=== PATIENT | female | born 1990 ===

== ENCOUNTER 2016-10-09 21:18 | Emergency (ER) | payer OTHER ==
[2016-10-09 21:19] VITALS: BMI 53.2
[2016-10-09 21:46] VITALS: BP 158/94; RESP 16; TEMP 99.1
[2016-10-09 22:06] VITALS: PULSE 104; O2SAT 98
[2016-10-09] MEDS ORDERED: Sodium Chloride 0.9% 1,000 ML IV STA (22:07)
--- NOTE | 2016-10-09 22:07 | ED PDOC ---
Arrival/HPI - General Chief Complaint: Abdominal Pain Time Seen by Provider: 10/09/16 21:51 Historian: Patient - History of Present Illness Narrative History of Present Illness (Text): 10/09/16 22:06 Shruthi De Souza is a 26 year old female, with no significant past medical history , who presents to the ED complaining of upper abdominal cramping since this morning. Patient reports associated nausea, dry-heaving, non-bloody diarrhea, and headache. Patient denies any recent sick exposure, fever, chills, chest pain, shortness of breath, cough, sore throat, urinary symptoms, or back pain. Patient states she is on Depovera and her last menstrual period was late July 2016. Patient also notes she has aleft lower tooth abscess for which she took Amoxicillin and scheduled to see her dentist on 10/14/2016. Time/Duration: Other (morning) Symptom Onset: Gradual Symptom Course: Unchanged Activities at Onset: Rest, Light Context: Home Past Medical History - Provider Review Nursing Documentation Reviewed: Yes - Infectious Disease Hx of Infectious Diseases: None - Tetanus Immunization Tetanus Immunization: Unknown - Past Medical History Past Medical History: No Previous - Cardiac Hx Cardiac Disorders: Yes Hx Hypertension: Yes - Pulmonary Hx Respiratory Disorders: No - Neurological Hx Neurological Disorder: No - HEENT Hx HEENT Disorder: No - Renal Hx Renal Disorder: No - Endocrine/Metabolic Hx Endocrine Disorders: No - Hematological/Oncological Hx Blood Disorders: No - Integumentary Hx Dermatological Disorder: No - Musculoskeletal/Rheumatological Hx Musculoskeletal Disorders: No - Gastrointestinal Hx Gastrointestinal Disorders: No - Genitourinary/Gynecological Hx Genitourinary Disorders: No - Psychiatric Hx Psychophysiologic Disorder: No Hx Substance Use: No - Past Surgical History Past Surgical History: No Previous - Surgical History Hx Section: Yes - Anesthesia Hx Anesthesia: Yes Hx Anesthesia Reactions: No Hx Malignant Hyperthermia: No - Suicidal Assessment Feels Threatened In Home Enviroment: No Family/Social History - Physician Review Nursing Documentation Reviewed: Yes Family/Social History: No Known Family HX Smoking Status: Never Smoked Hx Alcohol Use: No Hx Substance Use: No Hx Substance Use Treatment: No Allergies/Home Meds Allergies/Adverse Reactions: Allergies No Known Allergies Allergy (Verified 10/09/16 21:43) Home Medications: Home Meds Medication Instructions Recorded Confirmed Depo Shot 07/10/16 Review of Systems - Physician Review All systems were reviewed & negative as marked: Yes - Review of Systems Constitutional: Normal. absent: Fevers Eyes: Normal ENT: Normal. absent: Sore Throat Respiratory: Normal. absent: SOB, Cough Cardiovascular: Normal. absent: Chest Pain Gastrointestinal: Abdominal Pain, Diarrhea, Nausea Genitourinary Female: Normal. absent: Dysuria, Frequency, Hematuria, Urine Output Changes Musculoskeletal: Normal. absent: Back Pain, Neck Pain Skin: Normal. absent: Rash Neurological: Headache. absent: Dizziness Endocrine: Normal Hemo/Lymphatic: Normal Psychiatric: Normal Physical Exam Vital Signs Reviewed: Yes Vital Signs Temp Pulse Resp BP Pulse Ox 10/09/16 22:06 99.1 F 104 H 16 98 10/09/16 21:44 99.1 F 105 H 16 158/94 H 99 Temperature: Afebrile Blood Pressure: Hypertensive Pulse: Regular Respiratory Rate: Normal Appearance: Positive for: Well-Appearing, Non-Toxic, Comfortable, Other (Obese) Pain Distress: None Mental Status: Positive for: Alert and Oriented X 3 - Systems Exam Head: Present: Atraumatic, Normocephalic Pupils: Present: PERRL Extroacular Muscles: Present: EOMI Conjunctiva: Present: Normal Mouth: Present: Moist Mucous Membranes. No: Normal Teeth (left lower 1st molar dental lev) Neck: Present: Normal Range of Motion Respiratory/Chest: Present: Clear to Auscultation, Good Air Exchange. No: Respiratory Distress, Accessory Muscle Use Cardiovascular: Present: Regular Rate and Rhythm, Normal S1, S2. No: Murmurs Abdomen: Present: Normal Bowel Sounds. No: Tenderness, Distention, Peritoneal Signs Neurological: Present: GCS=15, CN II-XII Intact, Speech Normal Skin: Present: Warm, Dry, Normal Color. No: Rashes Psychiatric: Present: Alert, Oriented x 3, Normal Insight, Normal Concentration Medical Decision Making ED Course and Treatment: 10/09/16 22:06 Impression: 26 y/o female c/o upper abdominal cramping, nausea, and diarrhea since this morning. Also with ongoing dental infection. Differential Diagnosis included but are not limited to: gastroenteritis vs. vs. reaction to Amoxicillin vs. pancreatitis Plan: -- Labs, lipase -- UA -- IV fluids -- Pepcid -- Reglan -- Toradol -- Reassess and disposition Progress Notes: 10/09/16 23:46 On re-evaluation, patient states she feels significantly better. 10/10/16 00:34 HCG is negative. Exam is unremarkable. Labs unremarkable and feeling much better as noted. Will d/c. - Lab Interpretations Lab Results: 10/09/16 22:40 10/09/16 23:10 Lab Results 10/09/16 23:10: Sodium 139, Potassium 3.7, Chloride 104, Carbon Dioxide 24, Anion Gap 15, BUN 9, Creatinine 0.6, Est GFR ( Amer) > 60, Est GFR (Non- Af Amer) > 60, Random Glucose 114 H, Calcium 8.8, Total Bilirubin 0.6, AST 19, ALT 31, Alkaline Phosphatase 86, Total Protein 7.8, Albumin 3.8, Globulin 4.0, Albumin/Globulin Ratio 1.0 L, Lipase 45 10/09/16 22:40: WBC 6.7 D, RBC 5.14, Hgb 12.4, Hct 38.0, MCV 73.9 L, MCH 24.1 L , MCHC 32.6, RDW 14.9 H, Plt Count 227, Gran % 78.9 H, Lymph % (Auto) 14.8 L, [place] % (Auto) 6.1 H, Eos % (Auto) 0.1 L, Baso % (Auto) 0.1, Gran # 5.28, Lymph # 1.0 L, [place] # 0.4, Eos # 0.0, Baso # 0.01, PT 10.7, INR 0.99, APTT 27.2, Urine Color Yellow, Urine Appearance Clear, Urine pH 6.0, Ur Specific [place] > = 1.030, Urine Protein Negative, Urine Glucose (UA) Negative, Urine Ketones Trace H, Urine Blood Negative, Urine Nitrate Negative, Urine Bilirubin Negative , Urine Urobilinogen 0.2, Ur Leukocyte Esterase Negative I have reviewed the lab results: Yes - Medication Orders Current Medication Orders: Discontinued Medications Famotidine (Pepcid) 20 mg IVP STAT STA Stop: 10/09/16 22:08 Last Admin: 10/09/16 22:46 Dose: 20 MG IVP Administration Document 10/09/16 22:46 [email or web address] (Rec: 10/09/16 22:46 [facility] [id number]) Charges for Administration # of IVP Administrations 1 Sodium Chloride (Sodium Chloride 0.9%) 1,000 mls @ 1,000 mls/hr IV .Q1H STA Stop: 10/09/16 23:06 Last Admin: 10/09/16 22:46 Dose: 1,000 MLS/HR eMAR Start Stop Document 10/09/16 22:46 [email or web address] (Rec: 10/09/16 22:46 [email or web address] [id number]) Intravenous Solution Start Date 10/09/16 Start Time 22:46 End Date 10/09/16 Ketorolac Tromethamine (Toradol) 30 mg IVP STAT STA Stop: 10/09/16 22:08 Last Admin: 10/09/16 22:46 Dose: 30 MG IVP Administration Document 10/09/16 22:46 [email or web address] (Rec: 10/09/16 22:46 [email or web address] [id number]) Charges for Administration # of IVP Administrations 1 Metoclopramide HCl (Reglan) 10 mg IVP STAT STA Stop: 10/09/16 22:09 Last Admin: 10/09/16 22:46 Dose: 10 MG IVP Administration Document 10/09/16 22:46 [email or web address] (Rec: 10/09/16 22:46 CASTS1 [id number]) Charges for Administration # of IVP Administrations 1 - Scribe Statement The provider has reviewed the documentation as recorded by the [place] Provider Attestation: All medical record entries made by the Feleciaibsharad were at my direction and personally dictated by me. I have reviewed the chart and agree that the record accurately reflects my personal performance of the history, physical exam, medical decision making, and the department course for this patient. I have also personally directed, reviewed, and agree with the discharge instructions and disposition. Disposition/Present on Arrival - Present on Arrival Any Indicators Present on Arrival: No History of DVT/PE: No History of Uncontrolled Diabetes: No Urinary Catheter: No History of Decub. Ulcer: No History Surgical Site Infection Following: None - Disposition Have Diagnosis and Disposition been Completed?: Yes Diagnosis: Vomiting and diarrhea, Pain, dental Disposition: HOME/ ROUTINE Disposition Time: 12:40 Patient Plan: Discharge Condition: GOOD Discharge Instructions (ExitCare): Acute Nausea and Vomiting (ED), Acute Diarrhea (ED) Additional Instructions: Take the medications as prescribed. Drink plenty of fluids. Follow up with your primary care doctor and dentist as scheduled. Prescriptions: Amoxicillin [Amoxil 500 mg Cap] 1 cap PO TID #21 cap Ranitidine HCl [Zantac] 1 tab PO BID #30 tablet Ondansetron ODT [Zofran ODT] 1 tab PO Q8H PRN #10 odt PRN Reason: Nausea/Vomiting Referrals: Pastor Lamar MD, PhD [Primary Care Provider] - Follow up with primary
[2016-10-09 22:52] LABS: ADD MANUAL DIFF? NO
[2016-10-09 23:15] LABS: BASO # 0.01 K/mm3 (0.0-2.0); BASO % 0.1 % (0.0-3.0); EOS % 0.1 % (1.5-5.0); GRAN # 5.28 (1.4-6.5); GRAN % 78.9 % (50.0-68.0); LYMPH % 14.8 % (22.0-35.0); MEAN CELL VOLUME 73.9 fL (80.0-105.0); MEAN CORPUSCULAR HEMOGLOBIN 24.1 pg (25.0-35.0); MEAN CORPUSCULAR HGB CONC 32.6 g/dl (31.0-37.0); MONO # 0.4 (0.1-0.6); MONO % 6.1 % (1.0-6.0); PLATELET COUNT 227 10^3/uL (120.0-450.0); RED CELL DISTRIBUTION WIDTH 14.9 % (11.5-14.5); WHITE BLOOD COUNT 6.7 10^3/ul (4.5-11.0)
[2016-10-09 23:17] LABS: INR 0.99 (0.93-1.08); PARTIAL THROMBOPLASTIN TIME 27.2 Seconds (23.7-30.8)
[2016-10-09 23:18] LABS: URINE BILIRUBIN NEGATIVE (NEGATIVE); URINE BLOOD NEGATIVE (NEGATIVE); URINE GLUCOSE (UA) NEGATIVE (NEGATIVE); URINE KETONE TRACE mg/dL (NEGATIVE); URINE LEUKOCYTE ESTERASE NEGATIVE Leu/uL (NEGATIVE); URINE PROTEIN NEGATIVE mg/dL (<30 mg/dL); URINE UROBILINOGEN 0.2 E.U./dL (<1 E.U./dL)
[2016-10-09 23:21] LABS: URINE APPEARANCE CLEAR (CLEAR); URINE COLOR YELLOW (YELLOW)
[2016-10-09 23:39] LABS: ALKALINE PHOSPHATASE 86 U/L (38-133); ALT/SGPT 31 U/L (7-56); AST/SGOT 19 U/L (15-39); BILIRUBIN,TOTAL 0.6 mg/dL (0.2-1.3); BLOOD UREA NITROGEN 9 mg/dL (7-21); CALCIUM 8.8 mg/dL (8.4-10.5); CARBON DIOXIDE 24 mmol/L (21-33); CHLORIDE 104 mmol/L (98-107); GFR AFRICAN-AMERICAN > 60; GLUCOSE,RANDOM 114 mg/dL (70-110); LIPASE 45 U/L (23-300); POTASSIUM 3.7 mmol/L (3.6-5.0); SODIUM 139 mmol/L (132-148); TOTAL PROTEIN 7.8 g/dL (5.8-8.3)
== END 2016-10-10 00:53 | disposition home or self-care (01) ==
LOC: ED 21:18
DX: R11.10 Vomiting, unspecified (principal); R19.7 Diarrhea, unspecified; K08.89 Other specified disorders of teeth and supporting structures
CPT/HCPCS: 80053; 81003; 83690; 85025; 85610; 85730; 96374; 96375; 99283; J1885; J2765; J7040

== ENCOUNTER 2016-10-29 16:19 | Observation (INO) | payer OTHER ==
[2016-10-29] MEDS ORDERED: Sodium Chloride 0.9% 1,000 ML IV STA (16:49)
[2016-10-29 17:14] LABS: ADD MANUAL DIFF? NO
[2016-10-29 17:19] LABS: URINE BILIRUBIN LARGE (NEGATIVE); URINE BLOOD NEGATIVE (NEGATIVE); URINE GLUCOSE (UA) NEGATIVE (NEGATIVE); URINE KETONE TRACE mg/dL (NEGATIVE); URINE LEUKOCYTE ESTERASE TRACE Leu/uL (NEGATIVE); URINE PROTEIN TRACE mg/dL (<30 mg/dL); URINE UROBILINOGEN >=8.0 E.U./dL (<1 E.U./dL)
[2016-10-29 17:20] LABS: BASO # 0.02 [, K/mm3] (0.0-2.0); BASO % 0.4 % (0.0-3.0); EOS % 0.7 % (1.5-5.0); GRAN # 2.93 (1.4-6.5); GRAN % 51.2 % (50.0-68.0); HEMATOCRIT 40.7 % (36.0-48.0); LYMPH # 2.4 (1.2-3.4); LYMPH % 41.9 % (22.0-35.0); MEAN CELL VOLUME 74.4 fL (80.0-105.0); MEAN CORPUSCULAR HEMOGLOBIN 24.1 pg (25.0-35.0); MEAN CORPUSCULAR HGB CONC 32.4 g/dl (31.0-37.0); MEAN PLATELET VOLUME 11.8 fl (7.0-11.0); MONO # 0.3 (0.1-0.6); MONO % 5.8 % (1.0-6.0); PLATELET COUNT 185 [, 10^3/uL] (120.0-450.0); RED CELL DISTRIBUTION WIDTH 14.8 % (11.5-14.5); WHITE BLOOD COUNT 5.7 [, 10^3/ul] (4.5-11.0)
[2016-10-29 17:20] LABS: URINE APPEARANCE SL CLOUDY (CLEAR); URINE COLOR DARK YELLOW (YELLOW)
--- NOTE | 2016-10-29 17:23 | ED PDOC ---
Arrival/HPI - General Chief Complaint: Abdominal Pain Time Seen by Provider: 10/29/16 16:20 Historian: Patient - History of Present Illness Narrative History of Present Illness (Text): 10/29/16 16:49 26yr old female presents today with upper abdominal pain x 1 week. pt states pain is intermittent. pt states pain is worse after eating. pt describes pain as sharp and cramping. pt states pain radiates to the right flank and across the back. denies cp or sob. no vomiting/diarrhea. pt states she noticed her urine looked dark today. pt states she hasnt been eating much due to the pain. no diarrhea/constipation. no vaginal bleeding or discharge. pt states pain radiates to right shoulder. no other complaints. Past Medical History - Provider Review Nursing Documentation Reviewed: Yes - Travel History Have you recently traveled outside [place] w/in the past 3 mons?: No - Infectious Disease Hx of Infectious Diseases: None - Tetanus Immunization Tetanus Immunization: Unknown - Reproductive Menopause: No - Past Medical History Past Medical History: No Previous - Cardiac Hx Cardiac Disorders: Yes Hx Hypertension: Yes - Pulmonary Hx Respiratory Disorders: No - Neurological Hx Neurological Disorder: No - HEENT Hx HEENT Disorder: No - Renal Hx Renal Disorder: No - Endocrine/Metabolic Hx Endocrine Disorders: No - Hematological/Oncological Hx Blood Disorders: No - Integumentary Hx Dermatological Disorder: No - Musculoskeletal/Rheumatological Hx Musculoskeletal Disorders: No - Gastrointestinal Hx Gastrointestinal Disorders: No - Genitourinary/Gynecological Hx Genitourinary Disorders: No - Psychiatric Hx Psychophysiologic Disorder: No Hx Substance Use: No - Past Surgical History Past Surgical History: No Previous - Surgical History Hx Section: Yes - Anesthesia Hx Anesthesia: Yes Hx Anesthesia Reactions: No Hx Malignant Hyperthermia: No - Suicidal Assessment Feels Threatened In Home Enviroment: No Family/Social History - Physician Review Nursing Documentation Reviewed: Yes Family/Social History: Unknown Family HX Smoking Status: Never Smoked Hx Alcohol Use: No Hx Substance Use: No Hx Substance Use Treatment: No Allergies/Home Meds Allergies/Adverse Reactions: Allergies No Known Allergies Allergy (Verified 10/09/16 21:43) Home Medications: Home Meds Medication Instructions Recorded Confirmed Depo Shot 07/10/16 Review of Systems - Review of Systems Constitutional: absent: Fevers Respiratory: absent: SOB, Cough Cardiovascular: absent: Chest Pain, Palpitations Gastrointestinal: Abdominal Pain. absent: Constipation, Diarrhea, Nausea, Vomiting Genitourinary Female: absent: Dysuria, Frequency, Hematuria, Vaginal Bleeding, Vaginal Discharge Musculoskeletal: Back Pain. absent: Arthralgias, Neck Pain Skin: absent: Rash, Pruritis Neurological: absent: Headache, Dizziness Psychiatric: absent: Anxiety, Depression, Suicidal Ideation Physical Exam Vital Signs Reviewed: Yes Vital Signs Temp Pulse Resp BP Pulse Ox 10/29/16 17:45 86 18 135/86 99 10/29/16 16:32 99.7 F H 90 18 139/99 H 99 10/29/16 16:27 99.7 F H 90 16 139/99 H 99 Temperature: Afebrile Blood Pressure: Hypertensive Pulse: Regular Respiratory Rate: Normal Appearance: Positive for: Well-Appearing, Non-Toxic, Comfortable Pain Distress: None Mental Status: Positive for: Alert and Oriented X 3 - Systems Exam Head: Present: Atraumatic Mouth: Present: Moist Mucous Membranes Neck: Present: Normal Range of Motion Respiratory/Chest: Present: Clear to Auscultation, Good Air Exchange. No: Respiratory Distress, Accessory Muscle Use Cardiovascular: Present: Regular Rate and Rhythm, Normal S1, S2. No: Murmurs Abdomen: Present: Tenderness (+ ruq and epigastric tenderness), Normal Bowel Sounds. No: Distention, Peritoneal Signs, Rebound, Guarding Back: Present: Normal Inspection. No: CVA Tenderness, Midline Tenderness, Paraspinal Tenderness Neurological: Present: GCS=15, Speech Normal Skin: Present: Warm, Dry, Normal Color. No: Rashes Psychiatric: Present: Alert, Oriented x 3 Medical Decision Making ED Course and Treatment: 10/29/16 16:52 Patient is nontoxic well appearing with stable vital signs presenting with ruq/ epigastric abdominal pain. pt morbidly obese with abdominal pain radiating to back. worse with eating. CBC wnl CMP elevated ast, alt, alk phos, and total bili Amylase wnl Lipase wnl Urinalysis + blood Ultrasound: FINDINGS: LIVER: Measures 15.8 cm in sagittal dimension. Echogenic liver may be seen in setting of hepatic parenchymal disease or fatty infiltration. No focal hepatic mass identified. The main portal vein appears patent with normal directional flow. No intrahepatic bile duct dilatation. GALLBLADDER: Gallstones. No gallbladder wall thickening. Negative sonographic Lopez's sign as assessed by the legal project manager. COMMON BILE DUCT: Measures 1 cm. PANCREAS: Not well visualized. RIGHT KIDNEY: Measures 10.9 x 5.3 x 6.3 cm. No obstructing calculus or hydronephrosis identified. LEFT KIDNEY: Measures 10.8 x 5.8 x 6.2 cm. No obstructing calculus or hydronephrosis identified. SPLEEN: Measures approximately 14 cm. AORTA: Limited views appear unremarkable. IVC: Limited views appear unremarkable. OTHER FINDINGS: None. IMPRESSION: Echogenic liver may be seen in setting of hepatic parenchymal disease or fatty infiltration. Cholelithiasis. Splenomegaly. Dilated common bile duct measuring approximately 1 cm. CAT scan: FINDINGS: Lower thorax: Heart size is normal. Lung bases are clear ABDOMEN: Liver: unremarkable Gallbladder and bile ducts: Gallbladder is partially distended. There is mild pericholecystic edema. There are stones in the gallbladder. Proximal common duct is mildly dilated. There is decreased caliber of the distal common duct. Distal duct measures approximate 6 mm in diameter.Urinary bladder is partially distended. Pancreas: unremarkable Spleen: unremarkable Adrenals: unremarkable Kidneys and ureters: unremarkable Stomach and bowel: Stomach is partially distended. Rotation is normal. There is no obstruction. Terminal ileum is unremarkable. Appendix is unremarkable.Colon is incompletely distended which limits evaluation.There is diverticulosis. Appendix: See stomach and bowel PELVIS: Bladder: See above. Reproductive: Uterus and adnexal structures are unremarkable. ABDOMEN and PELVIS: Intraperitoneal space: There is no significant fluid.There is no free air. Bones/joints: There are no acute osseous abnormalities. There is partial sacralization of L5. Soft tissues: There is a small fat containing umbilical hernia. Vasculature: Vascular structures are unremarkable. Lymph nodes: unremarkable IMPRESSION: Gallstones; mildly prominent common duct and pericholecystic fluid/edema suggests cholecystitis Additional findings as described above. Hepatobiliary scan may be helpful for more complete evaluation Patient reassessment: pt feeling okay in er; Discussed all results with patient and parent in depth; will admit to med/surg for cholecystitis blood cultures pending Zosyn started IV. case discussed with dr. monzon; residential support worker case discussed with dr. rola quintanilla; accepts admission. Impression: cholecystitis, elevated lfts admit to med/surg - Lab Interpretations Lab Results: 10/29/16 17:10 10/29/16 17:10 Lab Results 10/29/16 17:10: WBC 5.7, RBC 5.47, Hgb 13.2, Hct 40.7, MCV 74.4 L, MCH 24.1 L, MCHC 32.4, RDW 14.8 H, Plt Count 185, MPV 11.8 H, Gran % 51.2, Lymph % (Auto) 41.9 H, [place] % (Auto) 5.8, Eos % (Auto) 0.7 L, Baso % (Auto) 0.4, Gran # 2.93, Lymph # 2.4, [place] # 0.3, Eos # 0.0, Baso # 0.02 10/29/16 17:10: Sodium 142, Potassium 3.5 L, Chloride 105, Carbon Dioxide 25, Anion Gap 16, BUN 8, Creatinine 0.7, Est GFR ( Amer) > 60, Est GFR (Non- Af Amer) > 60, Random Glucose 106, Calcium 9.5, Total Bilirubin 3.4 H, AST 445 H , ALT 458 H, Alkaline Phosphatase 215 H, Total Protein 8.7 H, Albumin 4.3, Globulin 4.4, Albumin/Globulin Ratio 1.0 L, Amylase 43, Lipase 92 10/29/16 17:00: Urine Color Dark yellow, Urine Appearance Sl cloudy, Urine pH 6.0, Ur Specific [place] >= 1.030, Urine Protein Trace H, Urine Glucose (UA) Negative, Urine Ketones Trace H, Urine Blood Negative, Urine Nitrate Negative, Urine Bilirubin Large H, Urine Urobilinogen >=8.0, Ur Leukocyte Esterase Trace H , Urine RBC Negative, Urine WBC 1 - 3, Ur Epithelial Cells 4 - 5, Urine Bacteria Mod - RAD Interpretation Radiology Orders: 10/29/16 16:48 ABDOMEN COMPLETE [US] Stat 10/29/16 18:37 ABD & PELVIS IV CONTRAST ONLY [CT] Stat - Medication Orders Current Medication Orders: Piperacillin Sod/Tazobactam Sod (Zosyn 3.375 In Ns 100ml) 100 mls @ 200 mls/hr IVPB STAT STA PRN Reason: Protocol Stop: 10/29/16 20:23 Discontinued Medications Sodium Chloride (Sodium Chloride 0.9%) 1,000 mls @ 999 mls/hr IV .Q1H1M STA Stop: 10/29/16 17:49 Last Admin: 10/29/16 17:10 Dose: 999 mls/hr Iohexol (Omnipaque 350 100 Ml) Confirm Administered Dose 350 mg .ROUTE .[facility] ONE Stop: 10/29/16 18:42 Disposition/Present on Arrival - Present on Arrival Any Indicators Present on Arrival: No History of DVT/PE: No History of Uncontrolled Diabetes: No Urinary Catheter: No History of Decub. Ulcer: No History Surgical Site Infection Following: None - Disposition Have Diagnosis and Disposition been Completed?: Yes Diagnosis: Cholecystitis Disposition: HOSPITALIZED Disposition Time: 19:40 Patient Plan: Admission Condition: FAIR Referrals: Pastor Lamar MD, PhD [Primary Care Provider] - Follow up with primary
[2016-10-29 17:28] LABS: URINE BACTERIA MOD (NEG); URINE RBC NEGATIVE /hpf (0-2)
[2016-10-29 17:28] LABS: ALKALINE PHOSPHATASE 215 U/L (38-133); ALT/SGPT 458 U/L (7-56); AMYLASE 43 U/L (35-125); AST/SGOT 445 U/L (15-39); BILIRUBIN,TOTAL 3.4 mg/dL (0.2-1.3); BLOOD UREA NITROGEN 8 mg/dL (7-21); CALCIUM 9.5 mg/dL (8.4-10.5); CARBON DIOXIDE 25 mmol/L (21-33); CHLORIDE 105 mmol/L (98-107); GFR AFRICAN-AMERICAN > 60; GLUCOSE,RANDOM 106 mg/dL (70-110); LIPASE 92 U/L (23-300); POTASSIUM 3.5 mmol/L (3.6-5.0); SODIUM 142 mmol/L (132-148); TOTAL PROTEIN 8.7 g/dL (5.8-8.3)
[2016-10-29] MEDS ORDERED: Iohexol 350 MG/100 ML VIAL ONE (18:41)
--- NOTE | 2016-10-29 18:45 | US ---
HISTORY: abdominal pain ruq COMPARISON: None available TECHNIQUE: Sonographic evaluation of the abdomen. FINDINGS: LIVER: Measures 15.8 cm in sagittal dimension. Echogenic liver may be seen in setting of hepatic parenchymal disease or fatty infiltration. No focal hepatic mass identified. The main portal vein appears patent with normal directional flow. No intrahepatic bile duct dilatation. GALLBLADDER: Gallstones. No gallbladder wall thickening. Negative sonographic Lopez's sign as assessed by the hull and deck remover. COMMON BILE DUCT: Measures 1 cm. PANCREAS: Not well visualized. RIGHT KIDNEY: Measures 10.9 x 5.3 x 6.3 cm. No obstructing calculus or hydronephrosis identified. LEFT KIDNEY: Measures 10.8 x 5.8 x 6.2 cm. No obstructing calculus or hydronephrosis identified. SPLEEN: Measures approximately 14 cm. AORTA: Limited views appear unremarkable. IVC: Limited views appear unremarkable. OTHER FINDINGS: None. IMPRESSION: Echogenic liver may be seen in setting of hepatic parenchymal disease or fatty infiltration. Cholelithiasis. Splenomegaly. Dilated common bile duct measuring approximately 1 cm.
--- NOTE | 2016-10-29 19:42 | CT ---
EXAM: CT Abdomen and Pelvis With Intravenous Contrast CLINICAL HISTORY: 26 years old, female; Pain; Abdominal pain; Acute; Additional info: Abd pain TECHNIQUE: Axial computed tomography images of the abdomen and pelvis with intravenous contrast. This CT exam was performed using one or more of the following dose reduction techniques: automated exposure control, adjustment of the mA and/or kV according to patient size, and/or use of iterative reconstruction technique. Coronal and sagittal reformatted images were created and reviewed. CONTRAST: 100 mL of omni 350 administered intravenously. EXAM DATE/TIME: 10/29/2016 6:37 PM COMPARISON: There are no prior studies for comparison. FINDINGS: Lower thorax: Heart size is normal. Lung bases are clear ABDOMEN: Liver: unremarkable Gallbladder and bile ducts: Gallbladder is partially distended. There is mild pericholecystic edema. There are stones in the gallbladder. Proximal common duct is mildly dilated. There is decreased caliber of the distal common duct. Distal duct measures approximate 6 mm in diameter.Urinary bladder is partially distended. Pancreas: unremarkable Spleen: unremarkable Adrenals: unremarkable Kidneys and ureters: unremarkable Stomach and bowel: Stomach is partially distended. Rotation is normal. There is no obstruction. Terminal ileum is unremarkable. Appendix is unremarkable.Colon is incompletely distended which limits evaluation.There is diverticulosis. Appendix: See stomach and bowel PELVIS: Bladder: See above. Reproductive: Uterus and adnexal structures are unremarkable. ABDOMEN and PELVIS: Intraperitoneal space: There is no significant fluid.There is no free air. Bones/joints: There are no acute osseous abnormalities. There is partial sacralization of L5. Soft tissues: There is a small fat containing umbilical hernia. Vasculature: Vascular structures are unremarkable. Lymph nodes: unremarkable IMPRESSION: Gallstones; mildly prominent common duct and pericholecystic fluid/edema suggests cholecystitis Additional findings as described above. Hepatobiliary scan may be helpful for more complete evaluation
[2016-10-29] MEDS ORDERED: Piperacillin/Tazobact 3.375 gm 100 ML IVPB STA (19:54)
[2016-10-29] MEDS ORDERED: Morphine 2 mg/ml ISec IVP PRN (21:03)
[2016-10-29] MEDS ORDERED: Potassium Chloride 20 mEq ER Tab PO STA (21:06)
--- NOTE | 2016-10-29 21:09 | CP.PCM.HP ---
History of Present Illness - History of Present Illness History of Present Illness: CC: "Stomach pain, nausea" HPI: Pt is a 26 year old female with a PMHx of GERD and possible asthma who presents to the ED complaining of abdominal pain that began 5 days ago. Pt reports that she went to her PMD that day and had bloodwork and an ultrasound done. Pt reports that her blood work was normal at her PMD's office and ultrasound report had not come back yet. She reports that 2 days ago she experienced sudden, severe abdominal pain that went around to her back. She describes the pain as circumferential. She reports that the pain subsided afterwards to a baseline dull pain. She reports that she has experienced attacks of severe pain over the past 2 days, particularly after eating. She reports that she is nauseous but has not vomited. She reports that she has had small bowel movements. She denies diarrhea. Pt denies fever, but reports chills. Pt also reports decreased appetite. Pt denies chest pain, shortness of breath, dysuria. PMHx: GERD, states that doctor said she may have asthma, but she does not feel that she does nor reports any symptoms Home medications: Prescribed singulair, but reports that she does not take it Allergies: NKDA Past Surgical Hx: C-sections x 2 (2013 and 2015) Social Hx: denies hx of tobacco, alcohol, illicit drug use Family Hx: Diabetes, HTN, Cancer Present on Admission - Present on Admission Any Indicators Present on Admission: No Review of Systems - Constitutional Constitutional: Chills. absent: Fever - EENT Eyes: absent: Blurred Vision Ears: absent: Dizziness Nose/Mouth/Throat: absent: Epistaxis, Nasal Congestion - Cardiovascular Cardiovascular: absent: Chest Pain, Edema - Respiratory Respiratory: absent: Cough - Gastrointestinal Gastrointestinal: Abdominal Pain, Nausea. absent: Diarrhea, Vomiting - Musculoskeletal Musculoskeletal: absent: Atrophy, Back Pain - Neurological Neurological: absent: Dizziness, Headaches - Psychiatric Psychiatric: absent: Anxiety - Hematologic/Lymphatic Hematologic: absent: Easy Bleeding Past Patient History - Infectious Disease Hx of Infectious Diseases: None - Tetanus Immunizations Tetanus Immunization: Unknown - Past Social History Smoking Status: Never Smoked - CARDIAC Hx Cardiac Disorders: Yes Hx Hypertension: Yes - PULMONARY Hx Respiratory Disorders: No - NEUROLOGICAL Hx Neurological Disorder: No - HEENT Hx HEENT Problems: No - RENAL Hx Chronic Kidney Disease: No - ENDOCRINE/METABOLIC Hx Endocrine Disorders: No - HEMATOLOGICAL/ONCOLOGICAL Hx Blood Disorders: No - INTEGUMENTARY Hx Dermatological Problems: No - MUSCULOSKELETAL/RHEUMATOLOGICAL Hx Musculoskeletal Disorders: No - GASTROINTESTINAL Hx Gastrointestinal Disorders: No - GENITOURINARY/GYNECOLOGICAL Hx Genitourinary Disorders: No - PSYCHIATRIC Hx Psychophysiologic Disorder: No Hx Substance Use: No - SURGICAL HISTORY Hx Section: Yes - ANESTHESIA Hx Anesthesia: Yes Hx Anesthesia Reactions: No Hx Malignant Hyperthermia: No Meds Allergies/Adverse Reactions: Allergies Allergy/AdvReac Type Severity Reaction Status Date / Time No Known Allergies Allergy Verified 10/09/16 21:43 Physical Exam - Constitutional Appears: No Acute Distress - Head Exam Head Exam: ATRAUMATIC, NORMOCEPHALIC - Eye Exam Eye Exam: EOMI, PERRL - ENT Exam ENT Exam: Mucous Membranes Moist. absent: Mucous Membranes Dry - Respiratory Exam Respiratory Exam: Clear to Auscultation Bilateral. absent: Rales, Rhonchi, Wheezes - Cardiovascular Exam Cardiovascular Exam: +S1, +S2. absent: Gallop, Rubs - GI/Abdominal Exam GI & Abdominal Exam: Normal Bowel Sounds, Soft, Tenderness. absent: Distended, Firm, Guarding - Extremities Exam Extremities exam: Positive for: full ROM. Negative for: pedal edema - Neurological Exam Neurological exam: Alert, Oriented x3 - Psychiatric Exam Psychiatric exam: Normal Affect, Normal Mood - Skin Skin Exam: Normal Color, Warm Results - Vital Signs Recent Vital Signs: Last Vital Signs Temp 99.7 F H 10/29/16 16:32 Pulse 86 10/29/16 17:45 Resp 18 10/29/16 17:45 BP 135/86 10/29/16 17:45 Pulse Ox 99 10/29/16 17:45 - Labs Result Diagrams: 10/29/16 17:10 10/29/16 17:10 Assessment & Plan - Assessment and Plan (Free Text) Assessment: Acute Cholecystitis/cholelithiasis: Tmax 99.7, nontachycardic No leukocytosis Total bilirubin 3.4 AST/ALT: 445/458 Alkaline Phosphatase - 215 Abdomen/Pelvis CT - Gallstones; mildly prominent common duct and pericholecystic fluid/edema suggests cholecystitis (please see full report) Abdominal ultrasound - Echogenic liver; cholelithiasis; splenomegaly; dilated common bile duct measuring approximately 1 cm (please see full report) HIDA scan pending General surgery, Dr. Gomez, consulted. Help appreciated. [place], Dr. Ford, consulted. Help appreciated. NPO diet Rocephin 1 gm IV q24h Flagyl 500 mg IV q8h Morphine 0.5 mg IV q4h prn for pain Zofran 4 mg IV q4h prn for nausea NS IVF 125 cc/hr Common Bile Duct Dilatation: Abdomen/Pelvis CT - Gallstones; mildly prominent common duct and pericholecystic fluid/edema suggests cholecystitis (please see full report) Abdominal ultrasound - Echogenic liver; cholelithiasis; splenomegaly; dilated common bile duct measuring approximately 1 cm (please see full report) HIDA scan pending Gastroenterology, Dr. Ford, consulted. Help appreciated. Prophylactic Measures: DVT: SCDs, chemical anticoagulation held due to MRCP in the am GI: Protonix 40 mg IV qd
--- NOTE | 2016-10-29 21:32 | CP.PCM.CON ---
<Corrie Gomes - Last Filed: 10/29/16 21:24> History of Present Illness - History of Present Illness History of Present Illness: General Surgery Dr. Bernardo HPI: 26 y/o morbidly obese F w/ PMHx of borderline HTN presents to the ED w/ CC of abd pain x1wk. Pt was being worked up as an outpatient for the abd pain w/ an US performed on Friday afternoon. However, pt reports severe pain Friday night after eating chicken nuggets and azeri fries for dinner. Pain was assoc w / nausea and SOB. pain has lessened but is still present. pain radiates to pt's back and shoulders. Pain is made worse w/ food. Pt admits to constipation, dizziness, and lightheadedness, which pt attributes to dehydration and lack of PO intake. Pt denies F/C, CP, vomiting, diarrhea, weakness, swelling. PMHx: borderline HTN, morbid obesity Meds: reviewed NKDA PSHx: x2, tooth extraction SHx: denies tobacco, EtOH, drugs FHx: mother - gallstones Review of Systems - Review of Systems All systems: reviewed and no additional remarkable complaints except (see HPI) Past Patient History - Infectious Disease Hx of Infectious Diseases: None - Tetanus Immunizations Tetanus Immunization: Unknown - Past Social History Smoking Status: Never Smoked - CARDIAC Hx Cardiac Disorders: Yes Hx Hypertension: Yes - PULMONARY Hx Respiratory Disorders: No - NEUROLOGICAL Hx Neurological Disorder: No - HEENT Hx HEENT Problems: No - RENAL Hx Chronic Kidney Disease: No - ENDOCRINE/METABOLIC Hx Endocrine Disorders: No - HEMATOLOGICAL/ONCOLOGICAL Hx Blood Disorders: No - INTEGUMENTARY Hx Dermatological Problems: No - MUSCULOSKELETAL/RHEUMATOLOGICAL Hx Musculoskeletal Disorders: No - GASTROINTESTINAL Hx Gastrointestinal Disorders: No - GENITOURINARY/GYNECOLOGICAL Hx Genitourinary Disorders: No - PSYCHIATRIC Hx Psychophysiologic Disorder: No Hx Substance Use: No - SURGICAL HISTORY Hx Section: Yes - ANESTHESIA Hx Anesthesia: Yes Hx Anesthesia Reactions: No Hx Malignant Hyperthermia: No Meds Allergies/Adverse Reactions: Allergies Allergy/AdvReac Type Severity Reaction Status Date / Time No Known Allergies Allergy Verified 10/09/16 21:43 - Medications Medications: Current Medications Metronidazole (Flagyl) 500 mg in 100 mls @ 100 mls/hr IVPB Q8 APRIL PRN Reason: Protocol Ceftriaxone Sodium (Rocephin 1 Gram Ivpb) 1 gm in 100 mls @ 100 mls/hr IVPB DAILY APRIL PRN Reason: Protocol Sodium Chloride (Sodium Chloride 0.9%) 1,000 mls @ 125 mls/hr IV .Q8H [facility] Morphine Sulfate (Morphine) 0.5 mg IVP Q4H PRN PRN Reason: Pain, moderate (4-7) Ondansetron HCl (Zofran Inj) 4 mg IVP Q4H PRN PRN Reason: Nausea/Vomiting Physical Exam - Constitutional Appears: Non-toxic, No Acute Distress - Head Exam Head Exam: NORMAL INSPECTION - Eye Exam Eye Exam: Normal appearance - ENT Exam ENT Exam: Mucous Membranes Moist - Respiratory Exam Respiratory Exam: Clear to Auscultation Bilateral, NORMAL BREATHING PATTERN. absent: Accessory Muscle Use, Rales, Rhonchi, Wheezes, Respiratory Distress, Stridor - Cardiovascular Exam Cardiovascular Exam: REGULAR RHYTHM, +S1, +S2. absent: Bradycardia, Tachycardia - GI/Abdominal Exam GI & Abdominal Exam: Hypoactive Bowel Sounds, Soft, Tenderness (TTP RUQ). absent: Distended, Guarding, Rebound, Rigid Additional comments: (+) Lopez's sign - Extremities Exam Extremities exam: Positive for: normal inspection. Negative for: pedal edema, tenderness - Neurological Exam Neurological exam: Alert, Oriented x3 - Psychiatric Exam Psychiatric exam: Normal Affect, Normal Mood - Skin Skin Exam: Dry, Intact, Warm Results - Vital Signs Recent Vital Signs: Last Vital Signs Temp 99.7 F H 10/29/16 16:32 Pulse 86 10/29/16 17:45 Resp 18 10/29/16 17:45 BP 135/86 10/29/16 17:45 Pulse Ox 99 10/29/16 17:45 - Labs Result Diagrams: 10/29/16 17:10 10/29/16 17:10 - Imaging and Cardiology CT scan - abdomen Status: Image reviewed by me, Report reviewed by me US - abdomen Status: Image reviewed by me, Report reviewed by me Assessment & Plan - Assessment and Plan (Free Text) Assessment: 26 y/o F w/ abd pain likely 2/2 acute cholecystitis - HIDA scan to confirm acute cholecystitis - GI consult for transaminitis - NPO, IVF - IV Abx - pain management - anti-emetics - GI/DVT PPx Pt discussed w/ Dr. Tova Gomes DO PGY1 <Dhaval Bernardo - Last Filed: 11/07/16 13:05> Results - Vital Signs Recent Vital Signs: Last Vital Signs Temp 97.7 F 11/01/16 16:00 Pulse 68 11/01/16 16:00 Resp 18 11/01/16 16:00 BP 133/80 11/01/16 16:00 Pulse Ox 98 11/01/16 16:00 - Labs Result Diagrams: 11/01/16 06:30 11/01/16 06:30 Assessment & Plan - Assessment and Plan (Free Text) Assessment: Patient was seen and examined by me. I agree with assessment and plan as per resident's note.
[2016-10-29] MEDS: metroNIDAZOLE IV 500 mg/100 ml 500 MG/100 ML BAG IVPB SCH (23:00)
[2016-10-29] MEDS: Sodium Chloride 0.9% 1,000 ML IV SCH (23:00)
[2016-10-30 00:12] VITALS: BMI 52.7
[2016-10-30] MEDS: Morphine 4 mg/ml ISec IVP PRN ×2 (00:16→14:02)
[2016-10-30] MEDS: metroNIDAZOLE IV 500 mg/100 ml 500 MG/100 ML BAG IVPB SCH ×3 (05:54→21:48)
[2016-10-30] MEDS: Sodium Chloride 0.9% 1,000 ML IV SCH ×2 (05:59→14:07)
[2016-10-30 07:04] LABS: ADD MANUAL DIFF? NO
[2016-10-30 07:15] LABS: BASO # 0.02 [, K/mm3] (0.0-2.0); BASO % 0.4 % (0.0-3.0); EOS % 0.9 % (1.5-5.0); GRAN # 2.08 (1.4-6.5); GRAN % 45.5 % (50.0-68.0); HEMATOCRIT 37.6 % (36.0-48.0); LYMPH # 2.1 (1.2-3.4); LYMPH % 44.9 % (22.0-35.0); MEAN CELL VOLUME 74.8 fL (80.0-105.0); MEAN CORPUSCULAR HEMOGLOBIN 23.9 pg (25.0-35.0); MEAN CORPUSCULAR HGB CONC 31.9 g/dl (31.0-37.0); MEAN PLATELET VOLUME 12.4 fl (7.0-11.0); MONO # 0.4 (0.1-0.6); MONO % 8.3 % (1.0-6.0); PLATELET COUNT 177 [, 10^3/uL] (120.0-450.0); WHITE BLOOD COUNT 4.6 [, 10^3/ul] (4.5-11.0)
[2016-10-30 07:26] LABS: ALB/GLOB RATIO 0.9 (1.1-1.8); ALKALINE PHOSPHATASE 192 U/L (38-133); ALT/SGPT 380 U/L (7-56); AST/SGOT 277 U/L (15-39); BLOOD UREA NITROGEN 5 mg/dL (7-21); CALCIUM 8.8 mg/dL (8.4-10.5); CARBON DIOXIDE 25 mmol/L (21-33); CHLORIDE 107 mmol/L (98-107); GFR AFRICAN-AMERICAN > 60; GLUCOSE,RANDOM 88 mg/dL (70-110); POTASSIUM 3.5 mmol/L (3.6-5.0); SODIUM 142 mmol/L (132-148); TOTAL PROTEIN 7.4 g/dL (5.8-8.3)
--- NOTE | 2016-10-30 09:55 | CP.PCM.PN ---
<Kristina Medina - Last Filed: 10/30/16 09:45> Subjective - Date & Time of Evaluation Date of Evaluation: 10/30/16 Time of Evaluation: 07:00 - Subjective Subjective: Surgery: Dr. Bernardo Pt seen and examined. No acute overnight events. States she feels better today and abdominal pain has subsided at this time. Denies N/V, F/C. Objective - Vital Signs/Intake and Output Vital Signs (last 24 hours): Temp Pulse Resp BP Pulse Ox 98.4 F 91 H 18 146/98 H 99 10/30/16 06:00 10/30/16 06:00 10/30/16 06:00 10/30/16 06:00 10/30/16 06:00 Intake and Output: 10/30/16 10/30/16 06:59 18:59 Intake Total 875 Balance 875 - Medications Medications: Current Medications Metronidazole (Flagyl) 500 mg in 100 mls @ 100 mls/hr IVPB Q8 APRIL PRN Reason: Protocol Last Admin: 10/30/16 05:54 Dose: 100 mls/hr Ceftriaxone Sodium (Rocephin 1 Gram Ivpb) 1 gm in 100 mls @ 100 mls/hr IVPB DAILY APRIL PRN Reason: Protocol Sodium Chloride (Sodium Chloride 0.9%) 1,000 mls @ 125 mls/hr IV .Q8H [facility] Last Admin: 10/30/16 05:59 Dose: Not Given Morphine Sulfate (Morphine) 4 mg IVP Q4H PRN PRN Reason: Pain, severe (8-10) Last Admin: 10/30/16 00:16 Dose: 4 mg Ondansetron HCl (Zofran Inj) 4 mg IVP Q4H PRN PRN Reason: Nausea/Vomiting Last Admin: 10/30/16 03:38 Dose: 4 mg Pantoprazole Sodium (Protonix Inj) 40 mg IVP DAILY APRIL - Labs Labs: 10/30/16 06:45 10/30/16 06:45 - Constitutional Appears: Well, No Acute Distress - Head Exam Head Exam: ATRAUMATIC, NORMOCEPHALIC - Eye Exam Eye Exam: Normal appearance - ENT Exam ENT Exam: Mucous Membranes Moist - Respiratory Exam Respiratory Exam: NORMAL BREATHING PATTERN - Cardiovascular Exam Cardiovascular Exam: RRR - GI/Abdominal Exam GI & Abdominal Exam: Soft, Normal Bowel Sounds. absent: Distended, Guarding, Tenderness, Rebound - Neurological Exam Neurological Exam: Alert, Awake, Oriented x3 - Skin Skin Exam: Dry, Intact, Warm Assessment and Plan - Assessment and Plan (Free Text) Assessment: 26F with cholecystitis, r/o choledocholithiasis Plan: - liver enzymes trending down - f/u HIDA - f/u GI recs - Keep NPO for now - IVF, IV ABX, pain management - d/w Dr. Tova Medina, PGY-2 Surgery <Dhaval Bernardo - Last Filed: 11/07/16 13:06> Objective - Vital Signs/Intake and Output Vital Signs (last 24 hours): Temp Pulse Resp BP Pulse Ox 97.7 F 68 18 133/80 98 11/01/16 16:00 11/01/16 16:00 11/01/16 16:00 11/01/16 16:00 11/01/16 16:00 - Labs Labs: 11/01/16 06:30 11/01/16 06:30 PT 11.4 Seconds (9.9-11.8) 10/31/16 05:00 INR 1.06 (0.93-1.08) 10/31/16 05:00 APTT 27.3 Seconds (23.7-30.8) 10/31/16 05:00 Assessment and Plan - Assessment and Plan (Free Text) Assessment: Patient was seen and examined by me. I agree with assessment and plan as per resident's note.
[2016-10-30] MEDS: cefTRIAXone 1 gm 1 GM/100 ML BAG IVPB SCH (10:54)
--- NOTE | 2016-10-30 11:35 | CP.PCM.PN ---
<Betzy Mcclellan - Last Filed: 10/30/16 12:22> Subjective - Date & Time of Evaluation Date of Evaluation: 10/30/16 Time of Evaluation: 11:32 - Subjective Subjective: Hospitalist Progress Note Patient seen and examined at bedside. There were no acute overnight events. She reports having some RUQ abdominal pain but denies n/v/d, CP, SOB, chills or fever. She did feel warm last night. Objective - Vital Signs/Intake and Output Vital Signs (last 24 hours): Temp Pulse Resp BP Pulse Ox 98.4 F 91 H 18 146/98 H 99 10/30/16 06:00 10/30/16 06:00 10/30/16 06:00 10/30/16 06:00 10/30/16 06:00 Intake and Output: 10/30/16 10/30/16 06:59 18:59 Intake Total 875 Balance 875 - Medications Medications: Current Medications Metronidazole (Flagyl) 500 mg in 100 mls @ 100 mls/hr IVPB Q8 APRIL PRN Reason: Protocol Last Admin: 10/30/16 05:54 Dose: 100 mls/hr Ceftriaxone Sodium (Rocephin 1 Gram Ivpb) 1 gm in 100 mls @ 100 mls/hr IVPB DAILY APRIL PRN Reason: Protocol Last Admin: 10/30/16 10:54 Dose: 100 mls/hr Sodium Chloride (Sodium Chloride 0.9%) 1,000 mls @ 125 mls/hr IV .Q8H [facility] Last Admin: 10/30/16 05:59 Dose: Not Given Morphine Sulfate (Morphine) 4 mg IVP Q4H PRN PRN Reason: Pain, severe (8-10) Last Admin: 10/30/16 00:16 Dose: 4 mg Ondansetron HCl (Zofran Inj) 4 mg IVP Q4H PRN PRN Reason: Nausea/Vomiting Last Admin: 10/30/16 03:38 Dose: 4 mg Pantoprazole Sodium (Protonix Inj) 40 mg IVP DAILY [facility] Last Admin: 10/30/16 10:55 Dose: 40 mg - Labs Labs: 10/30/16 06:45 10/30/16 06:45 - Constitutional Appears: No Acute Distress (Obese) - Head Exam Head Exam: ATRAUMATIC, NORMAL INSPECTION, NORMOCEPHALIC - Eye Exam Eye Exam: Normal appearance Pupil Exam: NORMAL ACCOMODATION - ENT Exam ENT Exam: Mucous Membranes Moist - Neck Exam Neck Exam: Full ROM - Respiratory Exam Respiratory Exam: Clear to Ausculation Bilateral, NORMAL BREATHING PATTERN. absent: Rales, Rhonchi, Wheezes - Cardiovascular Exam Cardiovascular Exam: REGULAR RHYTHM, +S1, +S2. absent: Gallop, Rubs, Murmur - GI/Abdominal Exam GI & Abdominal Exam: Soft, Tenderness (RUQ ), Normal Bowel Sounds. absent: Rigid, Mass, Rebound - Extremities Exam Extremities Exam: Normal Inspection. absent: Calf Tenderness, Pedal Edema - Neurological Exam Neurological Exam: Alert, Awake, CN II-XII Intact, Normal Gait, Oriented x3 - Psychiatric Exam Psychiatric exam: Normal Affect, Normal Mood - Skin Skin Exam: Dry, Normal Color, Warm Assessment and Plan - Assessment and Plan (Free Text) Assessment: This is 26Y morbidly obese female with PMH of GERD admitted for acute cholecystisis. Plan: 1. Acute cholecystisis - CT abd/pelvis showed mildly prominent common duct and pericholecystic fluid/ edema and gallstones - Abd U/S showed Echogenic liver; cholelithiasis; splenomegaly; dilated common bile duct measuring approximately 1 cm - HIDA today - Surgery consulted - GI consulted - NPO - NS@125 - Pain control, Zofran prn nausea - Rocephin and Flagyl 2. Transaminitis - improving - Secondary to cholecystitis - continue to monitor LFTs 3. GERD - Protonix IV GI ppx: Protonix DVT ppx: SCDs Case seen, discussed and reviewed with attending Emma PGY1 <Elizabeth Gutierrez - Last Filed: 10/30/16 14:19> Objective - Vital Signs/Intake and Output Vital Signs (last 24 hours): Temp Pulse Resp BP Pulse Ox 98.4 F 91 H 18 146/98 H 99 10/30/16 06:00 10/30/16 06:00 10/30/16 06:00 10/30/16 06:00 10/30/16 06:00 Intake and Output: 10/30/16 10/30/16 06:59 18:59 Intake Total 875 Balance 875 - Medications Medications: Current Medications Metronidazole (Flagyl) 500 mg in 100 mls @ 100 mls/hr IVPB Q8 APRIL PRN Reason: Protocol Last Admin: 10/30/16 14:04 Dose: 100 mls/hr Ceftriaxone Sodium (Rocephin 1 Gram Ivpb) 1 gm in 100 mls @ 100 mls/hr IVPB DAILY APRIL PRN Reason: Protocol Last Admin: 10/30/16 10:54 Dose: 100 mls/hr Sodium Chloride (Sodium Chloride 0.9%) 1,000 mls @ 125 mls/hr IV .Q8H [facility] Last Admin: 10/30/16 14:07 Dose: 125 mls/hr Morphine Sulfate (Morphine) 4 mg IVP Q4H PRN PRN Reason: Pain, severe (8-10) Last Admin: 10/30/16 14:02 Dose: 4 mg Ondansetron HCl (Zofran Inj) 4 mg IVP Q4H PRN PRN Reason: Nausea/Vomiting Last Admin: 10/30/16 03:38 Dose: 4 mg Pantoprazole Sodium (Protonix Inj) 40 mg IVP DAILY [facility] Last Admin: 10/30/16 10:55 Dose: 40 mg - Labs Labs: 10/30/16 06:45 10/30/16 06:45 Attending/Attestation - Attestation I have personally seen and examined this patient.: Yes I have fully participated in the care of the patient.: Yes I have reviewed all pertinent clinical information, including history, physical exam and plan: Yes Notes (Text): 10/30/16 14:16 Attending note; Patient is a 26-year-old female admitted with right upper quadrant pain. Continue nothing by mouth, IV fluids, IV anti-biotics. Ultrasound showed gallstones with thickening of the gallbladder wall consistent with cholecystitis. CBD dilated with elevated LFTs. MRCP ordered. GI evaluation requested for the need for ERCP. surgery evaluation appreciated. HIDA scan ordered. We'll follow up with GI and surgery. The diagnosis and treatment plan discussed with patient in detail. 10/30/16 14:18
--- NOTE | 2016-10-30 14:18 | NM ---
PROCEDURE: Nuclear Medicine Hepatobiliary Scan HISTORY: acute cholecystitis COMPARISON: October 29, 2016. CT abdomen and pelvis. Findings described in greater detail in the component of this study and summarized below in the Impression: Gallstones, a mildly prominent common duct and pericholecystic fluid. TECHNIQUE: 6.4 mCi of technetium 99m Mebrofenin was administered intravenously. Planar images of the abdomen were obtained at 5 min intervals to 60 mins. Delayed images were also obtained. FINDINGS: LIVER: Timely and homogenous uptake. COMMON BILE DUCT: identified at 15 mins. GALLBLADDER: identified at 45 mins. SMALL BOWEL: Not visualized at 04:00. Differential considerations include distal duct obstruction, of biliary dyskinesia, of preferential filling of gallbladder and poor hepatic function. IMPRESSION: Patent cystic duct. No evidence of acute cholecystitis. Nonvisualization of small bowel at 04:00. Please see above for details.
--- NOTE | 2016-10-30 19:52 | CON ---
DATE: 10/30/2016 GASTROINTESTINAL CONSULTATION Seen and examined at the bedside earlier this afternoon. REQUEST FOR CONSULT: For acute cholecystitis, CBD dilatation. HISTORY OF PRESENT ILLNESS: This is a 26-year-old obese female with a past medical history of GERD and x 2. She came to the Emergency Room with complaints of abdominal pain that she has had for about 5 days ago. The patient does state that she has had this abdominal pain for quite a while. She did remember having this type of abdominal pain after her first . Originally, she did complain of heartburn, not taking any medication and reported that she went to her PMD that day for evaluation. Blood work was done as well as an ultrasound in which she was reported that the blood work was normal. The patient states that the abdominal pain has been nonstop, which brought her to the Emergency Room. She denies any contributory food. In fact, she states that she had her 2 teeth pulled out on 10/18 and has not really been eating much. Friday, she had 3 chicken nuggets that she recalls. She did have some nausea and pain. No complaints of any fever or chills, shortness of breath or chest pain. She does complain that food does make her feel full. No fever or chills. Reports dark urine. No complaints of any dysuria or hematuria , no change in bowel habits or any bleeding per rectum. On admission, she had an ultrasound which reported gallbladder stones and dilated duct. She went for a CT scan as well and it showed again gallbladder stones with a mildly prominent common duct and fluid. At the time, she is waiting to go for the second part of a HIDA scan. PAST MEDICAL HISTORY: As stated above, GERD, possible asthma. PAST SURGICAL HISTORY: x 2. FAMILY HISTORY: Hypertension, cancer and diabetes. SOCIAL HISTORY: Denies tobacco, ETOH, or drug use. ALLERGIES: No known drug allergies. MEDICATIONS: Reviewed as per MAR. REVIEW OF SYSTEMS: Systems reviewed with positive findings, see HPI. VITAL SIGNS: Temperature is 98.4, blood pressure 146/98, pulse 91, respirations 18, 99 on room air. LABORATORY DATA: WBC is 4.6, H and H is 12.0, hematocrit is 37.6, platelets of 177. Chem: Sodium 142, K 3.5, BUN is 5, creatinine is 0.6. Total bilirubin is 3.0; on admission, it was 3.4. AST 277; on admission, it was 445. ALT 380, on admission 458. Alkaline phosphatase is 192, on admission is 215. Her LFTs actually show improvement today. Amylase on admission is 43, lipase is 92. Her urine shows trace leukocyte esterase, large bilirubin, trace of ketones and protein. HIDA scan was done and shows small bowel was not visualized, patent cystic duct, no evidence of acute cholecystitis. PHYSICAL EXAMINATION: HEENT: Sclerae does not appear icteric. NECK: Supple. CARDIAC: S1, S2. LUNGS: Clear. ABDOMEN: With bowel sounds, softly obese. I did not appreciate any tenderness on deep palpation. No rebound, guarding, or organomegaly. The patient states that her abdomen is just sore. EXTREMITIES: Positive pedal pulses, no edema. NEUROLOGIC: Awake, alert, and oriented. ASSESSMENT: A 26-year-old female with history of GERD, questionable asthma, with complaint of 5 days of abdominal pain, found to have cholelithiasis and dilated CBD duct, rule out any common bile duct stones. The patient has transaminitis, which shows some improvement today. The patient's LFTs have improved, ? if the patient passed any stones. Morbid obesity, history of C- section. Also concerns for acute cholecystitis. PLAN: Request for MRCP. The patient is on Flagyl and ceftriaxone. Monitor electrolytes and replace as necessary. The patient after MRCP start on liquid diet, can try some liquid diet. Discussed with medical team. The patient is also being followed by surgery. Discussed with nursing staff. Thank you for this consult and for allowing us to participate in your patient's care. We will monitor the patient's LFTs and also we will request for hepatitis panel. The patient was seen and case discussed with Dr. Ford. Odessa Guadalupees KAILEY cc: [id number] TT: 10/30/2016 19:51:26 Confirmation # [id number] Dictation # [id number] best NEELY
[2016-10-30] MEDS ORDERED: Morphine 2 mg/ml ISec IVP PRN (20:44)
[2016-10-31] MEDS: metroNIDAZOLE IV 500 mg/100 ml 500 MG/100 ML BAG IVPB SCH ×3 (05:37→21:00)
[2016-10-31 07:16] LABS: ADD MANUAL DIFF? NO
[2016-10-31 07:20] LABS: BASO # 0.02 [, K/mm3] (0.0-2.0); BASO % 0.5 % (0.0-3.0); GRAN # 2.45 (1.4-6.5); GRAN % 59.4 % (50.0-68.0); HEMATOCRIT 38.4 % (36.0-48.0); LYMPH # 1.4 (1.2-3.4); MEAN CELL VOLUME 74.9 fL (80.0-105.0); MEAN CORPUSCULAR HEMOGLOBIN 23.8 pg (25.0-35.0); MEAN CORPUSCULAR HGB CONC 31.8 g/dl (31.0-37.0); MEAN PLATELET VOLUME 11.8 fl (7.0-11.0); MONO # 0.3 (0.1-0.6); MONO % 6.1 % (1.0-6.0); PLATELET COUNT 180 [, 10^3/uL] (120.0-450.0); RED CELL DISTRIBUTION WIDTH 15.2 % (11.5-14.5); WHITE BLOOD COUNT 4.1 [, 10^3/ul] (4.5-11.0)
[2016-10-31 07:29] LABS: INR 1.06 (0.93-1.08); PARTIAL THROMBOPLASTIN TIME 27.3 Seconds (23.7-30.8)
[2016-10-31 07:42] LABS: ALKALINE PHOSPHATASE 215 U/L (38-133); ALT/SGPT 312 U/L (7-56); AST/SGOT 161 U/L (15-39); BILIRUBIN,TOTAL 2.8 mg/dL (0.2-1.3); BLOOD UREA NITROGEN 3 mg/dL (7-21); CARBON DIOXIDE 24 mmol/L (21-33); CHLORIDE 105 mmol/L (98-107); GFR AFRICAN-AMERICAN > 60; GLUCOSE,RANDOM 90 mg/dL (70-110); POTASSIUM 3.6 mmol/L (3.6-5.0); SODIUM 142 mmol/L (132-148); TOTAL PROTEIN 7.7 g/dL (5.8-8.3)
[2016-10-31] MEDS: cefTRIAXone 1 gm 1 GM/100 ML BAG IVPB SCH (09:44)
--- NOTE | 2016-10-31 13:19 | CP.PCM.PN ---
<Betzy Mcclellan - Last Filed: 10/31/16 13:30> Subjective - Date & Time of Evaluation Date of Evaluation: 10/31/16 Time of Evaluation: 13:16 - Subjective Subjective: Hospitalist Progress Note Patient seen and examined at bedside. There were no acute overnight events. She had clear liquid diet for dinner and tolerated it well. She denies having any abdominal pain, n/v/d, numbness/tingling, dysuria, hematuria, fever or chills. The patient is frustrated about having all the tests. Dr. Ford and myself educated the patient on the importance of testing and the risks, benefits and alternatives to doing procedures. Patient states she understands. Objective - Vital Signs/Intake and Output Vital Signs (last 24 hours): Temp Pulse Resp BP Pulse Ox 99.0 F 86 19 155/92 H 99 10/31/16 06:00 10/31/16 06:00 10/31/16 06:00 10/31/16 06:00 10/31/16 06:00 Intake and Output: 10/31/16 10/31/16 06:59 18:59 Intake Total 300 Balance 300 - Medications Medications: Current Medications Acetaminophen (Tylenol 325mg Tab) 650 mg PO Q6H PRN PRN Reason: Pain, moderate (4-7) Last Admin: 10/30/16 15:20 Dose: 650 mg Metronidazole (Flagyl) 500 mg in 100 mls @ 100 mls/hr IVPB Q8 [facility] PRN Reason: Protocol Last Admin: 10/31/16 05:37 Dose: 100 mls/hr Ceftriaxone Sodium (Rocephin 1 Gram Ivpb) 1 gm in 100 mls @ 100 mls/hr IVPB DAILY [facility] PRN Reason: Protocol Last Admin: 10/31/16 09:44 Dose: 100 mls/hr Sodium Chloride (Sodium Chloride 0.9%) 1,000 mls @ 125 mls/hr IV .Q8H [facility] Last Admin: 10/30/16 14:07 Dose: 125 mls/hr Morphine Sulfate (Morphine) 2 mg IVP Q4H PRN PRN Reason: Pain, moderate (4-7) Ondansetron HCl (Zofran Inj) 4 mg IVP Q4H PRN PRN Reason: Nausea/Vomiting Last Admin: 10/30/16 15:17 Dose: 4 mg Pantoprazole Sodium (Protonix Inj) 40 mg IVP DAILY [facility] Last Admin: 10/31/16 09:43 Dose: 40 mg - Labs Labs: 10/31/16 05:00 10/31/16 05:00 PT 11.4 Seconds (9.9-11.8) 10/31/16 05:00 INR 1.06 (0.93-1.08) 10/31/16 05:00 APTT 27.3 Seconds (23.7-30.8) 10/31/16 05:00 - Constitutional Appears: No Acute Distress - Head Exam Head Exam: ATRAUMATIC, NORMAL INSPECTION, NORMOCEPHALIC - Eye Exam Eye Exam: Normal appearance Pupil Exam: NORMAL ACCOMODATION - ENT Exam ENT Exam: Mucous Membranes Moist - Neck Exam Neck Exam: Full ROM - Respiratory Exam Respiratory Exam: Clear to Ausculation Bilateral, NORMAL BREATHING PATTERN. absent: Rales, Rhonchi, Wheezes - Cardiovascular Exam Cardiovascular Exam: REGULAR RHYTHM, +S1, +S2. absent: Gallop, Rubs, Murmur - GI/Abdominal Exam GI & Abdominal Exam: Soft, Normal Bowel Sounds. absent: Rigid, Tenderness, Mass , Rebound - Extremities Exam Extremities Exam: Full ROM, Normal Inspection. absent: Calf Tenderness, Pedal Edema - Neurological Exam Neurological Exam: Alert, Awake, CN II-XII Intact, Normal Gait, Oriented x3 - Psychiatric Exam Psychiatric exam: Normal Affect, Normal Mood - Skin Skin Exam: Dry, Intact, Normal Color, Warm Assessment and Plan - Assessment and Plan (Free Text) Assessment: This is 26Y morbidly obese female with PMH of GERD admitted for RUQ pain. Plan: 1. RUQ pain - CT abd/pelvis showed mildly prominent common duct and pericholecystic fluid/ edema and gallstones - Abd U/S showed Echogenic liver; cholelithiasis; splenomegaly; dilated common bile duct measuring approximately 1 cm - HIDA positive- did not show small bowel - MRCP done and reviewed by myself and Dr. Ford, final report pending - Surgery consulted- recs appreciated - GI consulted- plan for EUS in AM - Advance to clear liquid diet, NPO at midnight - Morphine prn pain, Zofran prn nausea - Rocephin and Flagyl 2. Transaminitis - Trending down - Secondary to choledocolithiasis - Monitor LFTs 3. GERD - Contniue Protonix GI ppx: Protonix DVT ppx: SCDs Case seen, discussed and reviewed with attending Emma PGY1 <Elizabeth Gutierrez - Last Filed: 10/31/16 16:43> Objective - Vital Signs/Intake and Output Vital Signs (last 24 hours): Temp Pulse Resp BP Pulse Ox 99.0 F 86 19 155/92 H 99 10/31/16 06:00 10/31/16 06:00 10/31/16 06:00 10/31/16 06:00 10/31/16 06:00 Intake and Output: 10/31/16 10/31/16 06:59 18:59 Intake Total 300 Balance 300 - Medications Medications: Current Medications Acetaminophen (Tylenol 325mg Tab) 650 mg PO Q6H PRN PRN Reason: Pain, moderate (4-7) Last Admin: 10/30/16 15:20 Dose: 650 mg Metronidazole (Flagyl) 500 mg in 100 mls @ 100 mls/hr IVPB Q8 [facility] PRN Reason: Protocol Last Admin: 10/31/16 13:22 Dose: 100 mls/hr Ceftriaxone Sodium (Rocephin 1 Gram Ivpb) 1 gm in 100 mls @ 100 mls/hr IVPB DAILY [facility] PRN Reason: Protocol Last Admin: 10/31/16 09:44 Dose: 100 mls/hr Sodium Chloride (Sodium Chloride 0.9%) 1,000 mls @ 100 mls/hr IV .Q10H [facility] Morphine Sulfate (Morphine) 2 mg IVP Q4H PRN PRN Reason: Pain, moderate (4-7) Ondansetron HCl (Zofran Inj) 4 mg IVP Q4H PRN PRN Reason: Nausea/Vomiting Last Admin: 10/30/16 15:17 Dose: 4 mg Pantoprazole Sodium (Protonix Inj) 40 mg IVP DAILY [facility] Last Admin: 10/31/16 09:43 Dose: 40 mg - Labs Labs: 10/31/16 05:00 10/31/16 05:00 PT 11.4 Seconds (9.9-11.8) 10/31/16 05:00 INR 1.06 (0.93-1.08) 10/31/16 05:00 APTT 27.3 Seconds (23.7-30.8) 10/31/16 05:00 Attending/Attestation - Attestation I have personally seen and examined this patient.: Yes I have fully participated in the care of the patient.: Yes I have reviewed all pertinent clinical information, including history, physical exam and plan: Yes Notes (Text): 10/31/16 16:40 Attending note; Patient is a 26-year-old female admitted with right upper quadrant pain. on clear liquid diet. Continue IV fluids, IV anti-biotics. Ultrasound showed gallstones with thickening of the gallbladder wall consistent with cholecystitis. CBD dilated with elevated LFTs. LFT improved. MRCP showed mildly dilated CBD but no stones.GI evaluation requested for the need for ERCP. surgery evaluation appreciated. HIDA scan Is negative for acute cholecystitis. GI evaluation appreciated. EUS tomorrow. The diagnosis and treatment plan discussed with patient and patient's mother in detail.
[2016-10-31] MEDS: Sodium Chloride 0.9% 1,000 ML IV SCH (13:23)
--- NOTE | 2016-10-31 13:32 | CP.PCM.PN ---
<Chavez Chang - Last Filed: 10/31/16 15:00> Subjective - Date & Time of Evaluation Date of Evaluation: 10/31/16 Time of Evaluation: 13:22 - Subjective Subjective: Surgery Progress note. Dr. Bernardo Pt seen and examined at bedside. No acute events overnight. Patient denies any N /V/D. Tolerating Clears. No F/C. No new complaints Patient is requesting surgery but was talked to be primary team/GI team and us about the importance of obtaining the necessary tests prior to going ahead with surgery. Objective - Vital Signs/Intake and Output Vital Signs (last 24 hours): Temp Pulse Resp BP Pulse Ox 99.0 F 86 19 155/92 H 99 10/31/16 06:00 10/31/16 06:00 10/31/16 06:00 10/31/16 06:00 10/31/16 06:00 Intake and Output: 10/31/16 10/31/16 06:59 18:59 Intake Total 300 Balance 300 - Medications Medications: Current Medications Acetaminophen (Tylenol 325mg Tab) 650 mg PO Q6H PRN PRN Reason: Pain, moderate (4-7) Last Admin: 10/30/16 15:20 Dose: 650 mg Metronidazole (Flagyl) 500 mg in 100 mls @ 100 mls/hr IVPB Q8 [facility] PRN Reason: Protocol Last Admin: 10/31/16 05:37 Dose: 100 mls/hr Ceftriaxone Sodium (Rocephin 1 Gram Ivpb) 1 gm in 100 mls @ 100 mls/hr IVPB DAILY [facility] PRN Reason: Protocol Last Admin: 10/31/16 09:44 Dose: 100 mls/hr Sodium Chloride (Sodium Chloride 0.9%) 1,000 mls @ 125 mls/hr IV .Q8H [facility] Last Admin: 10/30/16 14:07 Dose: 125 mls/hr Morphine Sulfate (Morphine) 2 mg IVP Q4H PRN PRN Reason: Pain, moderate (4-7) Ondansetron HCl (Zofran Inj) 4 mg IVP Q4H PRN PRN Reason: Nausea/Vomiting Last Admin: 10/30/16 15:17 Dose: 4 mg Pantoprazole Sodium (Protonix Inj) 40 mg IVP DAILY [facility] Last Admin: 10/31/16 09:43 Dose: 40 mg - Labs Labs: 10/31/16 05:00 10/31/16 05:00 PT 11.4 Seconds (9.9-11.8) 10/31/16 05:00 INR 1.06 (0.93-1.08) 10/31/16 05:00 APTT 27.3 Seconds (23.7-30.8) 10/31/16 05:00 - Constitutional Appears: Well, No Acute Distress - Head Exam Head Exam: ATRAUMATIC, NORMAL INSPECTION, NORMOCEPHALIC - Eye Exam Eye Exam: EOMI, Normal appearance. absent: Scleral icterus - ENT Exam ENT Exam: Mucous Membranes Moist - Respiratory Exam Respiratory Exam: NORMAL BREATHING PATTERN - Cardiovascular Exam Cardiovascular Exam: absent: JVD - GI/Abdominal Exam GI & Abdominal Exam: Soft. absent: Tenderness - Neurological Exam Neurological Exam: Alert, Awake - Skin Skin Exam: Dry, Intact, Normal Color, Warm Assessment and Plan - Assessment and Plan (Free Text) Assessment: 26yo F with Cholelithiasis and possible Choledocholithiasis. - Liver enzymes continue to trend down. F/U repeat enzymes tomorrow AM - HIDA with visualized GB, non visualized Small bowel - MRCP - possible small stones in CBD, CBD dilated - recommend EUS by GI tomorrow, 11/01/16 - Patient will benefit from elective cholecystectomy once cbd obstruction r/o or resolved. Discussed case with Dr. Bernardo. Chavez Chang PGY1 surgery pager: [phone] <Dhaval Bernardo - Last Filed: 11/07/16 13:07> Objective - Vital Signs/Intake and Output Vital Signs (last 24 hours): Temp Pulse Resp BP Pulse Ox 97.7 F 68 18 133/80 98 11/01/16 16:00 11/01/16 16:00 11/01/16 16:00 11/01/16 16:00 11/01/16 16:00 - Labs Labs: 11/01/16 06:30 11/01/16 06:30 PT 11.4 Seconds (9.9-11.8) 10/31/16 05:00 INR 1.06 (0.93-1.08) 10/31/16 05:00 APTT 27.3 Seconds (23.7-30.8) 10/31/16 05:00 Assessment and Plan - Assessment and Plan (Free Text) Assessment: Patient was seen and examined by me. I agree with assessment and plan as per resident's note.
--- NOTE | 2016-10-31 14:14 | MRI ---
PROCEDURE: Magnetic Resonance Cholangiopancreatography HISTORY: COMPARISON: Nuclear medicine HIDA study same day. TECHNIQUE: Multiplanar, multisequence MR images of the abdomen were obtained, including heavily T2 weighted MRCP images of the biliary system. Rotating maximum intensity projection images of the biliary system were generated. FINDINGS: MRCP: The common bile duct is mildly dilated measuring 9 mm in diameter distally. There is a normal tapering appearance. No evidence of choledocholithiasis. No intrahepatic biliary ductal dilatation. LIVER: Unremarkable. GALLBLADDER: Multiple small stones are seen in the gallbladder SPLEEN: Unremarkable. PANCREAS: Unremarkable. ADRENALS: Unremarkable. KIDNEYS: Unremarkable. AORTA: No aneurysm. ASCITES: None. OTHER FINDINGS: The report concurs with the preliminary [facility] report IMPRESSION: Multiple small gallstones. Mildly dilated common bile duct. No evidence of common duct stone
--- NOTE | 2016-10-31 16:19 | PN ---
DATE: 10/31/2016 Seen and examined at the bedside earlier today. The patient with no acute overnight events. No nausea or vomiting. The patient complains of abdominal pain, but no increase in intensity. VITAL SIGNS: Temperature is 99.0, blood pressure 155/92, pulse 86, respirations 19, 99 on room air. LABORATORY DATA: WBC is 4.1, H and H is 12.2 and 38.4, platelets are 180. PT is 11.4, INR is 1.06, PTT is 27.3. Sodium 142, K is 3.6, BUN 3, creatinine 0.6. Total bilirubin is 2.8, AST 161, ALT 312, alkaline phosphatase is 215. Hepatitis panel is negative. The patient went for MRCP and that showed multiple small gallstones, mildly dilated common duct. No evidence of CBD duct. PHYSICAL EXAMINATION: HEENT: Sclera is anicteric. NECK: Supple. CARDIAC: S1, S2. LUNGS: Clear. ABDOMEN: With bowel sounds, soft. She does have tenderness in the epigastric right upper quadrant area. No rebound or guarding. No organomegaly. ASSESSMENT: This is a 26-year-old morbidly obese female with history of gastroesophageal reflux disease, complaining of right upper quadrant pain. The patient has cholelithiasis and found to have a dilated duct. She went for multiple tests. MRCP is negative for any common bile duct stones, but it is dilated. The patient does have transaminitis, which is trending down. Likely, patient may have passed a stone. HIDA is positive, did not show any small bowel. PLAN: The patient can continue clear liquids, but will be n.p.o. after midnight for EGD EUS and possible ERCP depending upon EUS findings. We will continue the antibiotics, Rocephin and Flagyl. Continue Protonix with Zofran p.r.n. and is on morphine for pain. Continue surgical followup. The patient is also being followed by surgery. The plan was discussed with the patient in detail along with Dr. Mcclellan at the bedside. The patient's boyfriend was present. All questions were answered and concerns were heard. Discussed with the patient in detail the risks, benefits and alternatives. The patient was seen and discussed with Dr. Ford. Odessa BONNER cc: Freeman TT: 10/31/2016 16:18:56 Confirmation # [id number] Dictation # [id number] MTDD
[2016-10-31] MEDS ORDERED: Sodium Chloride 0.9% 1,000 ML IV SCH (20:00)
[2016-11-01] MEDS: metroNIDAZOLE IV 500 mg/100 ml 500 MG/100 ML BAG IVPB SCH ×2 (05:56→13:09)
[2016-11-01 07:12] LABS: ADD MANUAL DIFF? NO
[2016-11-01 07:21] LABS: BASO # 0.02 [, K/mm3] (0.0-2.0); BASO % 0.4 % (0.0-3.0); EOS # 0.1 (0.0-0.7); EOS % 0.9 % (1.5-5.0); GRAN # 3.19 (1.4-6.5); HEMATOCRIT 38.2 % (36.0-48.0); LYMPH # 1.7 (1.2-3.4); LYMPH % 31.2 % (22.0-35.0); MEAN CELL VOLUME 74.9 fL (80.0-105.0); MEAN CORPUSCULAR HEMOGLOBIN 24.1 pg (25.0-35.0); MEAN CORPUSCULAR HGB CONC 32.2 g/dl (31.0-37.0); MEAN PLATELET VOLUME 11.9 fl (7.0-11.0); MONO # 0.4 (0.1-0.6); MONO % 7.5 % (1.0-6.0); PLATELET COUNT 166 [, 10^3/uL] (120.0-450.0); RED CELL DISTRIBUTION WIDTH 15.2 % (11.5-14.5); WHITE BLOOD COUNT 5.3 [, 10^3/ul] (4.5-11.0)
[2016-11-01 07:36] LABS: ALB/GLOB RATIO 0.9 (1.1-1.8); ALKALINE PHOSPHATASE 192 U/L (38-133); ALT/SGPT 226 U/L (7-56); AST/SGOT 95 U/L (15-39); BILIRUBIN,TOTAL 1.7 mg/dL (0.2-1.3); BLOOD UREA NITROGEN 4 mg/dL (7-21); CALCIUM 8.5 mg/dL (8.4-10.5); CARBON DIOXIDE 23 mmol/L (21-33); CHLORIDE 105 mmol/L (98-107); GFR AFRICAN-AMERICAN > 60; GLUCOSE,RANDOM 91 mg/dL (70-110); SODIUM 140 mmol/L (132-148); TOTAL PROTEIN 8.1 g/dL (5.8-8.3)
--- NOTE | 2016-11-01 08:24 | PN ---
DATE: 10/31/2016 ADDENDUM This is an addendum to the GI progress report dictated by Odessa Diaz. This patient was seen and evaluated at 9:30 a.m. A detailed discussion was held with the patient and patient's boyfriend and fixed income trading vice president was also there. Explained to the patient the whole progre ss of the patient, the clinical course of the patient in detail. The patient fully understood the se lois risks and benefits of the EUS, ERCP procedures. Explained the need for the procedures. The pos sibility of the MRCP findings are also discussed with the patient. On examination, the patient has s till remained tenderness in the epigastric area. The MRCP showed no stones. LFTs are showing downwa rd trend. HIDA scan showed visualized gallbladder. The patient fully understood after the detailed explanation. PLAN: To consider followup of the LFTs. If the LFTs are showing downward trend still, would recomme nd to follow up the LFTs again. Will consider further evaluation including EUS or ERCP based on the trend of the LFTs in a.m. Thank you very much for allowing us to participate in the care of the patient. Carolina Ford MD cc: [id number] TT: 11/01/2016 08:24:12 Confirmation # [id number] Dictation # [id number]
--- NOTE | 2016-11-01 09:24 | CP.PCM.DIS ---
<ReynaldoBetzy lizarraga - Last Filed: 11/01/16 13:36> Provider - Provider Date of Admission: 10/29/16 20:32 Attending physician: Elizabeth Gutierrez MD Primary care physician: Pastor Lamar MD Phd Consults: GI: [place] Surgery: T[place] Time Spent in preparation of Discharge (in minutes): 35 Diagnosis - Discharge Diagnosis (1) Choledocholithiasis Status: Acute Hospital Course - Lab Results Lab Results: Micro Results 10/29/16 20:45 Blood Blood Culture - Preliminary NO GROWTH AFTER 48 HOURS 10/29/16 20:45 Blood Blood Culture - Preliminary NO GROWTH AFTER 48 HOURS Most Recent Lab Values WBC 5.3 10^3/ul (4.5-11.0) D 11/01/16 06:30 RBC 5.10 10^6/uL (3.5-6.1) 11/01/16 06:30 Hgb 12.3 gm/dL (12.0-16.0) 11/01/16 06:30 Hct 38.2 % (36.0-48.0) 11/01/16 06:30 MCV 74.9 fL (80.0-105.0) L 11/01/16 06:30 MCH 24.1 pg (25.0-35.0) L 11/01/16 06:30 MCHC 32.2 g/dl (31.0-37.0) 11/01/16 06:30 RDW 15.2 % (11.5-14.5) H 11/01/16 06:30 Plt Count 166 10^3/uL (120.0-450.0) 11/01/16 06:30 MPV 11.9 fl (7.0-11.0) H 11/01/16 06:30 Gran % 60.0 % (50.0-68.0) 11/01/16 06:30 Lymph % (Auto) 31.2 % (22.0-35.0) 11/01/16 06:30 [place] % (Auto) 7.5 % (1.0-6.0) H 11/01/16 06:30 Eos % (Auto) 0.9 % (1.5-5.0) L 11/01/16 06:30 Baso % (Auto) 0.4 % (0.0-3.0) 11/01/16 06:30 Gran # 3.19 (1.4-6.5) 11/01/16 06:30 Lymph # 1.7 (1.2-3.4) 11/01/16 06:30 [place] # 0.4 (0.1-0.6) 11/01/16 06:30 Eos # 0.1 (0.0-0.7) 11/01/16 06:30 Baso # 0.02 K/mm3 (0.0-2.0) 11/01/16 06:30 PT 11.4 Seconds (9.9-11.8) 10/31/16 05:00 INR 1.06 (0.93-1.08) 10/31/16 05:00 APTT 27.3 Seconds (23.7-30.8) 10/31/16 05:00 Sodium 140 mmol/L (132-148) 11/01/16 06:30 Potassium 4.0 mmol/L (3.6-5.0) 11/01/16 06:30 Chloride 105 mmol/L (98-107) 11/01/16 06:30 Carbon Dioxide 23 mmol/L (21-33) 11/01/16 06:30 Anion Gap 16 (10-20) 11/01/16 06:30 BUN 4 mg/dL (7-21) L 11/01/16 06:30 Creatinine 0.6 mg/dL (0.5-1.4) 11/01/16 06:30 Est GFR ( Amer) > 60 11/01/16 06:30 Est GFR (Non-Af Amer) > 60 11/01/16 06:30 Random Glucose 91 mg/dL (70-110) 11/01/16 06:30 Calcium 8.5 mg/dL (8.4-10.5) 11/01/16 06:30 Phosphorus 4.0 mg/dL (2.5-4.5) 10/30/16 06:45 Magnesium 2.0 mg/dL (1.7-2.2) 10/30/16 06:45 Total Bilirubin 1.7 mg/dL (0.2-1.3) H 11/01/16 06:30 AST 95 U/L (15-39) H 11/01/16 06:30 ALT 226 U/L (7-56) H 11/01/16 06:30 Alkaline Phosphatase 192 U/L (38-133) H 11/01/16 06:30 Total Protein 8.1 g/dL (5.8-8.3) 11/01/16 06:30 Albumin 3.9 g/dL (3.0-4.8) 11/01/16 06:30 Globulin 4.2 gm/dL 11/01/16 06:30 Albumin/Globulin Ratio 0.9 (1.1-1.8) L 11/01/16 06:30 Amylase 43 U/L (35-125) 10/29/16 17:10 Lipase 92 U/L (23-300) 10/29/16 17:10 Urine Color Dark yellow (YELLOW) 10/29/16 17:00 Urine Appearance Sl cloudy (CLEAR) 10/29/16 17:00 Urine pH 6.0 (4.7-8.0) 10/29/16 17:00 Ur Specific [place] >= 1.030 (1.005-1.035) 10/29/16 17:00 Urine Protein Trace mg/dL (<30 mg/dL) H 10/29/16 17:00 Urine Glucose (UA) Negative mg/dL (NEGATIVE) 10/29/16 17:00 Urine Ketones Trace mg/dL (NEGATIVE) H 10/29/16 17:00 Urine Blood Negative (NEGATIVE) 10/29/16 17:00 Urine Nitrate Negative (NEGATIVE) 10/29/16 17:00 Urine Bilirubin Large (NEGATIVE) H 10/29/16 17:00 Urine Urobilinogen >=8.0 E.U./dL (<1 E.U./dL) 10/29/16 17:00 Ur Leukocyte Esterase Trace Haylee/uL (NEGATIVE) H 10/29/16 17:00 Urine RBC Negative /hpf (0-2) 10/29/16 17:00 Urine WBC 1 - 3 /hpf (0-6) 10/29/16 17:00 Ur Epithelial Cells 4 - 5 /hpf (0-5) 10/29/16 17:00 Urine Bacteria Mod (NEG) 10/29/16 17:00 Hepatitis A IgM Ab Negative (NEGATIVE) 10/30/16 16:56 Hep Bs Antigen Negative (NEGATIVE) 10/30/16 16:56 Hep B Core IgM Ab Negative (NEGATIVE) 10/30/16 16:56 Hepatitis C Antibody Negative (NEGATIVE) 10/30/16 16:56 - Hospital Course Hospital Course: This is a 26Y morbidly obese female with PMH of asthma who came in for RUQ pain. She was noted to have elevated LFTs on admission, which has been trending down. CT abd/pelvis showed mildly prominent common duct and pericholecystic fluid/edema and gallstones. Abd U/S showed Echogenic liver; cholelithiasis; splenomegaly; dilated common bile duct measuring approximately 1 cm. A HIDA scan was done which showed visualization of the gallbladder, but not the small bowel. MRCP did not show stones or an obstruction. Since admission, patient's pain has resolved. She has been able to tolerate a clear liquid diet. As per surgery, the patient would benefit with outpatient cholecystectomy in about 6 weeks when the elevated LFTs has resolved. GI did an EUS that showed no CBD stone. Patient was educated on eating low fat diet and to avoid fried foods and cheese/dairy. She agrees with the plan and with follow up with her PMD, Surgery and GI as an outpatient to follow up with LFTs and outpatient lap blanca. Patient was planned to be prescribed Protonix 40mg qdaily x 10 days, but patient reports she already has some from PMD and showed me the bottle as well. - Date & Time of H&P Date of H&P: 10/29/16 Time of H&P: 21:00 Discharge Exam - Head Exam Head Exam: ATRAUMATIC, NORMAL INSPECTION, NORMOCEPHALIC - Eye Exam Eye Exam: Normal appearance, PERRL Pupil Exam: NORMAL ACCOMODATION - ENT Exam ENT Exam: Mucous Membranes Moist - Respiratory Exam Respiratory Exam: Clear to PA & Lateral, NORMAL BREATHING PATTERN, UNREMARKABLE. absent: Rales, Rhonchi, Wheezes - Cardiovascular Exam Cardiovascular Exam: REGULAR RHYTHM, +S1, +S2. absent: Gallop, Rubs, Systolic Murmur - GI/Abdominal Exam GI & Abdominal Exam: Normal Bowel Sounds, Soft, Unremarkable. absent: Mass, Rebound, Rigid, Tenderness - Extremities Exam Extremities exam: normal inspection - Neurological Exam Neurological exam: Alert, CN II-XII Intact, Normal Gait, Oriented x3 - Psychiatric Exam Psychiatric exam: Normal Affect, Normal Mood - Skin Skin Exam: Dry, Intact, Normal Color, Warm Discharge Plan - Discharge Medications Prescriptions: Ursodiol [Actigall] 300 mg PO BID #60 cap levoFLOXacin [Levaquin] 250 mg PO DAILY #7 tab Pantoprazole Sodium [Protonix] 40 mg PO DAILY #10 ect - Follow Up Plan Condition: FAIR Disposition: HOME/ ROUTINE Instructions: Cholecystitis (DC) Additional Instructions: 1. Please refrain from eating fatty foods including fried foods and cheese. 2. Follow up with Dr. Bernardo (Surgeon) in 1 week to plan for outpatient cholecystectomy 3. Follow up with Dr. Ford (GI) in 1 week to follow up elevated LFTs 4. Follow up with PMD in 1 week. Referrals: Pastor Lamar MD, PhD [Primary Care Provider] - 1 Week Dhaval Bernardo MD [Staff Provider] - 1 Week Carolina Ford MD [Medical Doctor] - 1 Week <Elizabeth Gutierrez - Last Filed: 11/02/16 13:31> Provider - Provider Date of Admission: 10/29/16 20:32 Attending physician: Elizabeth Gutierrez MD Primary care physician: Pastor Lamar MD Phd Hospital Course - Lab Results Lab Results: Micro Results 10/29/16 20:45 Blood Blood Culture - Preliminary NO GROWTH AFTER 3 DAYS 10/29/16 20:45 Blood Blood Culture - Preliminary NO GROWTH AFTER 3 DAYS Most Recent Lab Values WBC 5.3 10^3/ul (4.5-11.0) D 11/01/16 06:30 RBC 5.10 10^6/uL (3.5-6.1) 11/01/16 06:30 Hgb 12.3 gm/dL (12.0-16.0) 11/01/16 06:30 Hct 38.2 % (36.0-48.0) 11/01/16 06:30 MCV 74.9 fL (80.0-105.0) L 11/01/16 06:30 MCH 24.1 pg (25.0-35.0) L 11/01/16 06:30 MCHC 32.2 g/dl (31.0-37.0) 11/01/16 06:30 RDW 15.2 % (11.5-14.5) H 11/01/16 06:30 Plt Count 166 10^3/uL (120.0-450.0) 11/01/16 06:30 MPV 11.9 fl (7.0-11.0) H 11/01/16 06:30 Gran % 60.0 % (50.0-68.0) 11/01/16 06:30 Lymph % (Auto) 31.2 % (22.0-35.0) 11/01/16 06:30 [place] % (Auto) 7.5 % (1.0-6.0) H 11/01/16 06:30 Eos % (Auto) 0.9 % (1.5-5.0) L 11/01/16 06:30 Baso % (Auto) 0.4 % (0.0-3.0) 11/01/16 06:30 Gran # 3.19 (1.4-6.5) 11/01/16 06:30 Lymph # 1.7 (1.2-3.4) 11/01/16 06:30 [place] # 0.4 (0.1-0.6) 11/01/16 06:30 Eos # 0.1 (0.0-0.7) 11/01/16 06:30 Baso # 0.02 K/mm3 (0.0-2.0) 11/01/16 06:30 PT 11.4 Seconds (9.9-11.8) 10/31/16 05:00 INR 1.06 (0.93-1.08) 10/31/16 05:00 APTT 27.3 Seconds (23.7-30.8) 10/31/16 05:00 Sodium 140 mmol/L (132-148) 11/01/16 06:30 Potassium 4.0 mmol/L (3.6-5.0) 11/01/16 06:30 Chloride 105 mmol/L (98-107) 11/01/16 06:30 Carbon Dioxide 23 mmol/L (21-33) 11/01/16 06:30 Anion Gap 16 (10-20) 11/01/16 06:30 BUN 4 mg/dL (7-21) L 11/01/16 06:30 Creatinine 0.6 mg/dL (0.5-1.4) 11/01/16 06:30 Est GFR ( Amer) > 60 11/01/16 06:30 Est GFR (Non-Af Amer) > 60 11/01/16 06:30 Random Glucose 91 mg/dL (70-110) 11/01/16 06:30 Calcium 8.5 mg/dL (8.4-10.5) 11/01/16 06:30 Phosphorus 4.0 mg/dL (2.5-4.5) 10/30/16 06:45 Magnesium 2.0 mg/dL (1.7-2.2) 10/30/16 06:45 Total Bilirubin 1.7 mg/dL (0.2-1.3) H 11/01/16 06:30 AST 95 U/L (15-39) H 11/01/16 06:30 ALT 226 U/L (7-56) H 11/01/16 06:30 Alkaline Phosphatase 192 U/L (38-133) H 11/01/16 06:30 Total Protein 8.1 g/dL (5.8-8.3) 11/01/16 06:30 Albumin 3.9 g/dL (3.0-4.8) 11/01/16 06:30 Globulin 4.2 gm/dL 11/01/16 06:30 Albumin/Globulin Ratio 0.9 (1.1-1.8) L 11/01/16 06:30 Amylase 43 U/L (35-125) 10/29/16 17:10 Lipase 92 U/L (23-300) 10/29/16 17:10 Urine Color Dark yellow (YELLOW) 10/29/16 17:00 Urine Appearance Sl cloudy (CLEAR) 10/29/16 17:00 Urine pH 6.0 (4.7-8.0) 10/29/16 17:00 Ur Specific [place] >= 1.030 (1.005-1.035) 10/29/16 17:00 Urine Protein Trace mg/dL (<30 mg/dL) H 10/29/16 17:00 Urine Glucose (UA) Negative mg/dL (NEGATIVE) 10/29/16 17:00 Urine Ketones Trace mg/dL (NEGATIVE) H 10/29/16 17:00 Urine Blood Negative (NEGATIVE) 10/29/16 17:00 Urine Nitrate Negative (NEGATIVE) 10/29/16 17:00 Urine Bilirubin Large (NEGATIVE) H 10/29/16 17:00 Urine Urobilinogen >=8.0 E.U./dL (<1 E.U./dL) 10/29/16 17:00 Ur Leukocyte Esterase Trace Haylee/uL (NEGATIVE) H 10/29/16 17:00 Urine RBC Negative /hpf (0-2) 10/29/16 17:00 Urine WBC 1 - 3 /hpf (0-6) 10/29/16 17:00 Ur Epithelial Cells 4 - 5 /hpf (0-5) 10/29/16 17:00 Urine Bacteria Mod (NEG) 10/29/16 17:00 Hepatitis A IgM Ab Negative (NEGATIVE) 10/30/16 16:56 Hep Bs Antigen Negative (NEGATIVE) 10/30/16 16:56 Hep B Core IgM Ab Negative (NEGATIVE) 10/30/16 16:56 Hepatitis C Antibody Negative (NEGATIVE) 10/30/16 16:56 Attending/Attestation - Attestation I have personally seen and examined this patient.: Yes I have fully participated in the care of the patient.: Yes I have reviewed all pertinent clinical information, including history, physical exam and plan: Yes Notes (Text): 11/02/16 13:28 Attending note; Patient seen and examined with resident. Patient is a 26-year-old female admitted with right upper quadrant pain. on clear liquid diet. Treated with IV fluids, IV anti-biotics. Ultrasound showed gallstones with thickening of the gallbladder wall consistent with cholecystitis. CBD dilated with elevated LFTs. LFT improved. MRCP showed mildly dilated CBD but no stones. GI evaluation with Dr. Ford appreciated. EUS is negative. surgery evaluation appreciated. HIDA scan Is negative for acute cholecystitis. Patient will get outpatient elective cholecystectomy by . The diagnosis and treatment plan discussed with patient and patient's mother in detail. Prescription for levofloxacin, Actigall, Protonix given. Case discussed with her PMD Dr. Lamar in detail. Diagnosis; Gallstones Elevated LFTs Status post EUS Cholecystitis
--- NOTE | 2016-11-01 09:38 | CP.PCM.PN ---
<EliseoCorrie - Last Filed: 11/01/16 09:29> Subjective - Date & Time of Evaluation Date of Evaluation: 11/01/16 Time of Evaluation: 07:10 - Subjective Subjective: General Surgery Dr. Bernardo Pt S&E @bedside. NAEO. pain improved. denies F/C, N/V. NPO for EUS today. Objective - Vital Signs/Intake and Output Vital Signs (last 24 hours): Temp Pulse Resp BP Pulse Ox 98.8 F 66 18 127/87 99 11/01/16 06:00 11/01/16 06:00 11/01/16 06:00 11/01/16 06:00 11/01/16 06:00 Intake and Output: 11/01/16 11/01/16 06:59 18:59 Intake Total 1800 Balance 1800 - Medications Medications: Current Medications Acetaminophen (Tylenol 325mg Tab) 650 mg PO Q6H PRN PRN Reason: Pain, moderate (4-7) Last Admin: 10/30/16 15:20 Dose: 650 mg Metronidazole (Flagyl) 500 mg in 100 mls @ 100 mls/hr IVPB Q8 APRIL PRN Reason: Protocol Last Admin: 11/01/16 05:56 Dose: 100 mls/hr Ceftriaxone Sodium (Rocephin 1 Gram Ivpb) 1 gm in 100 mls @ 100 mls/hr IVPB DAILY APRIL PRN Reason: Protocol Last Admin: 10/31/16 09:44 Dose: 100 mls/hr Sodium Chloride (Sodium Chloride 0.9%) 1,000 mls @ 100 mls/hr IV .Q10H [facility] Last Admin: 10/31/16 21:01 Dose: 100 mls/hr Morphine Sulfate (Morphine) 2 mg IVP Q4H PRN PRN Reason: Pain, moderate (4-7) Ondansetron HCl (Zofran Inj) 4 mg IVP Q4H PRN PRN Reason: Nausea/Vomiting Last Admin: 10/30/16 15:17 Dose: 4 mg Pantoprazole Sodium (Protonix Inj) 40 mg IVP DAILY [facility] Last Admin: 10/31/16 09:43 Dose: 40 mg - Labs Labs: 11/01/16 06:30 11/01/16 06:30 PT 11.4 Seconds (9.9-11.8) 10/31/16 05:00 INR 1.06 (0.93-1.08) 10/31/16 05:00 APTT 27.3 Seconds (23.7-30.8) 10/31/16 05:00 - Constitutional Appears: Non-toxic, No Acute Distress - Head Exam Head Exam: NORMAL INSPECTION - Eye Exam Eye Exam: Normal appearance - ENT Exam ENT Exam: Mucous Membranes Moist - Respiratory Exam Respiratory Exam: NORMAL BREATHING PATTERN. absent: Accessory Muscle Use, Respiratory Distress - Cardiovascular Exam Cardiovascular Exam: absent: Bradycardia, Tachycardia - GI/Abdominal Exam GI & Abdominal Exam: Soft. absent: Distended, Guarding, Tenderness, Rebound - Extremities Exam Extremities Exam: Normal Inspection - Neurological Exam Neurological Exam: Alert, Awake, Oriented x3 - Psychiatric Exam Psychiatric exam: Normal Affect, Normal Mood - Skin Skin Exam: Dry, Intact, Normal Color, Warm Assessment and Plan - Assessment and Plan (Free Text) Assessment: 26 y/o F w/ cholelithiasis and transaminitis - LFTs trending down - f/u GI recs - EUS scheduled for today - f/u results - pt cleared for d/c after EUS - f/u in office w/ Tova to schedule outpatient cholecystectomy - bland, low fat diet recommended Pt discussed w/ Dr. Tova Gomes DO PGY1 <Dhaval Bernardo - Last Filed: 11/07/16 13:08> Objective - Vital Signs/Intake and Output Vital Signs (last 24 hours): Temp Pulse Resp BP Pulse Ox 97.7 F 68 18 133/80 98 11/01/16 16:00 11/01/16 16:00 11/01/16 16:00 11/01/16 16:00 11/01/16 16:00 - Labs Labs: 11/01/16 06:30 11/01/16 06:30 PT 11.4 Seconds (9.9-11.8) 10/31/16 05:00 INR 1.06 (0.93-1.08) 10/31/16 05:00 APTT 27.3 Seconds (23.7-30.8) 10/31/16 05:00 Assessment and Plan - Assessment and Plan (Free Text) Assessment: Patient was seen and examined by me. I agree with assessment and plan as per resident's note.
[2016-11-01] MEDS: cefTRIAXone 1 gm 1 GM/100 ML BAG IVPB SCH (09:46)
[2016-11-01] MEDS ORDERED: Indomethacin 50 MG Suppository PR ONE (11:30)
[2016-11-01] MEDS ORDERED: Iohexol 240 (50 ml) ONE (11:31)
[2016-11-01] MEDS ORDERED: Propofol 10 mg/ml Inj (20 ML) ONE (11:55)
[2016-11-01] MEDS ORDERED: Rocuronium 10 mg/ml (5 ml) ONE (11:55)
[2016-11-01] MEDS ORDERED: Midazolam 2 MG/2 ML VIAL ONE (11:55)
--- NOTE | 2016-11-01 13:07 | PN ---
DATE: 11/01/2016 SUBJECTIVE: This patient was seen and evaluated earlier. The patient feels much better now. No com plaints of any abdominal pain now. PHYSICAL EXAMINATION: VITAL SIGNS: Stable. Temperature 99.3, pulse 79, blood pressure 147/74, respirations 20, O2 sat is 99%. HEENT: Atraumatic, anicteric. NECK: Supple. HEART: S1, S2 heard. LUNGS: Bilateral air entry present. ABDOMEN: Soft. There is no tenderness at this time. EXTREMITIES: No cyanosis. No clubbing. No edema. LABORATORY DATA: WBC count 5.3, hemoglobin 12.3, hematocrit 32.2, platelets 166. Chemistry shows si gnificant improvement in the LFTs; still continues with a downward trend. The patient's total biliru bin is now 1.7 but AST is 95, ALT is 226, and alkaline phosphatase still remains elevated at 192. IMPRESSION: This 26-year-old patient was admitted with gallstones and elevated LFTs. MRCP shows mil dly prominent common bile duct, but no filling defect noticed. But the concern is still persistent e levated LFTs. They have been showing a downward trend, but still remains elevated; that is our loreto rn. Discussed with the surgeon and the plan is to proceed with an EUS to further evaluate it in view of this slowly dropping alkaline phosphatase. We may need an MRI. We may proceed with an ERCP if t here is any need after the EUS. The findings were discussed with the patient and also the patient's mother who was at bedside. The risks, benefits and alternatives explained. The risks of bleeding, p erforation and need for surgery, and failure of cannulation were also explained. Informed consent wa s obtained for the procedure. Thank you very much for allowing us to participate in the care of the patient. Carolina Ford MD cc: [id number] TT: 11/01/2016 13:06:25 Confirmation # [id number] Dictation # [id number]
[2016-11-01] MEDS ORDERED: Neostigmine Methylsulfate 3mg/3ml Syringe IV ONE (13:29)
[2016-11-01] MEDS ORDERED: Lactated Ringer's 1,000 ML IV SCH (13:51)
[2016-11-01] MEDS ORDERED: Simethicone 40 mg/0.6 ml Liquid (30 ml) ONE (14:45)
[2016-11-01 16:55] VITALS: BP 133/80; PULSE 68; RESP 18; TEMP 97.7; O2SAT 98
== END 2016-11-01 18:47 | disposition home or self-care (01) ==
LOC: ED 16:19 → ERH 20:32 → INTOOBSV 20:32 → ERH 20:55 → 3RNO 21:20
PROVIDERS: ADMIT Internal Medicine; ATTEND Internal Medicine
DX: K80.10 Calculus of gallbladder with chronic cholecystitis without obstruction (principal); R59.1 Generalized enlarged lymph nodes; K21.9 Gastro-esophageal reflux disease without esophagitis; E66.01 Morbid (severe) obesity due to excess calories; R03.0 Elevated blood-pressure reading, without diagnosis of hypertension; Z68.43 Body mass index [BMI] 50.0-59.9, adult; R79.89 Other specified abnormal findings of blood chemistry
CPT/HCPCS: 36415; 43237; 74177; 74181; 76700; 78227; 80053; 80074; 81001; 82150; 83690; 83735; 84100; 85025; 85610; 85730; 87040; 87086; 96361; 96365; 96366; 96367; 96375; 96376; 99284; A9537; C9113; G0378; J0696; J2001; J2250; J2270; J2405; J2543; J2704; J2710; J3010; J7040; J7120; Q9967